=== PATIENT | male | born 1945 | race Two or more races ===

== ENCOUNTER 2019-10-07 11:08 | Emergency (ER) | payer MEDICAID ==
[~2019-10-07] VITALS: Ht 172.7 cm; Wt 94.8 kg
--- NOTE | 2019-10-07 11:20 | NUR ---
[id number], PT AWAKE, ALERT, -SOB, NAD NOTED, VSS ,PENDING MD JEAN
[2019-10-07] MEDS ORDERED: ONDANSETRON HCL/PF 4 MG/2 ML VIAL ONE (12:06)
[2019-10-07] MEDS ORDERED: ONDANSETRON HCL/PF 4 MG/2 ML VIAL IVP ONE (12:30)
[2019-10-07 12:37] LABS: BASOPHILS # (AUTO) 0.1 /CMM (0.0-0.2); BASOPHILS % (AUTO) 0.6 % (0.0-2.0); CALCIUM, SERUM 9.5 mg/dL (8.5-10.1); CARBON DIOXIDE 29 mmol/L (21-32); CHLORIDE 98 mmol/L (98-107); CREATININE 1.5 mg/dL (0.6-1.3); GLUCOSE 181 mg/dL (74-106); HEMATOCRIT 42 % (39-51); HEMOGLOBIN 14.1 g/dL (13.5-17.5); LYMPHOCYTES # (AUTO) 0.8 /CMM (0.8-4.8); LYMPHOCYTES % (AUTO) 6.7 % (20.0-44.0); MEAN CORPUSCULAR HGB CONC 34 g/dl (31.0-36.0); MEAN CORPUSCULAR VOLUME 91 fL (80-96); MONOCYTES # (AUTO) 0.3 /CMM (0.1-1.30); MONOCYTES % (AUTO) 2.6 % (2.0-12.0); NEUTROPHILS # (AUTO) 10.8 /CMM (1.8-8.9); NEUTROPHILS % (AUTO) 89.1 % (43.0-81.0); PLATELET COUNT (AUTO) 235 /CMM (150-450); POTASSIUM 4.6 mmol/L (3.5-5.1); RED BLOOD CELL COUNT(AUTO) 4.57 MIL/uL (4.5-6.0); SODIUM SERUM 136 mmol/L (136-145); UREA NITROGEN, BLOOD 32 mg/dL (7-18); WHITE BLOOD COUNT (AUTO) 12.1 K/uL (4.3-11.0)
--- NOTE | 2019-10-07 12:38 | NUR ---
called rn sup for bed, waiting
[2019-10-07 12:43] LABS: APPEARANCE,URINE Clear (CLEAR); BILIRUBIN,URINE Negative (NEGATIVE); BLOOD, URINE Moderate Ery/uL (NEGATIVE); COLOR,URINE Yellow (YELLOW); KETONES,URINE Negative (NEGATIVE); LEUKOCYTE ESTERASE ,URINE Negative (NEGATIVE); NITRITE, URINE Negative (NEGATIVE); PROTEIN,URINE 30 mg/dl (NEGATIVE); UGLUCOSE Negative (NEGATIVE); UROBILINOGEN,URINE 0.2 EU/dL (0.2)
[2019-10-07] MEDS ORDERED: TICA90TA PO (12:46)
[2019-10-07] MEDS ORDERED: INSU100V27 SQ (12:46)
[2019-10-07] MEDS ORDERED: INSU100V7 SQ (12:46)
[2019-10-07] MEDS ORDERED: IBUP-1953 PO (12:46)
[2019-10-07] MEDS ORDERED: SITA100T PO (12:46)
[2019-10-07] MEDS ORDERED: ATOR20TA PO (12:46)
[2019-10-07] MEDS ORDERED: FURO-144 PO (12:46)
[2019-10-07] MEDS ORDERED: CAPT25TA3 PO (12:46)
[2019-10-07] MEDS ORDERED: LORA-259 PO (12:46)
[2019-10-07] MEDS ORDERED: ASPI-605 PO (12:46)
[2019-10-07] MEDS ORDERED: METF-440 PO (12:46)
[2019-10-07 12:50] LABS: BACTERIA,URINE Rare /HPF (None Seen); SQUAMOUS EPITHELIAL CELL,UR Rare /HPF (None Seen); WBC,URINE 0-2 /HPF (0-3)
[2019-10-07 12:53] LABS: ALANINE AMINOTRANSFERASE 47 U/L (12-78); ALCOHOL, BLOOD < 3 mg/dL (0-0); ALKALINE PHOSPHATASE 77 U/L (46-116); ASPARTATE AMINOTRANSFERASE 28 U/L (15-37); BILIRUBIN,DIRECT 0.2 mg/dL (0.0-0.2); BILIRUBIN,TOTAL 1.5 mg/dL (0.2-1.0); TOTAL PROTEIN, SERUM 8.1 g/dL (6.4-8.2)
[2019-10-07 12:54] LABS: ACETAMINOPHEN 0 ug/ml (10-30); SALICYLATE < 2.8 mg/dL (2.8-20.0)
[2019-10-07 13:07] LABS: SERUM AMMONIA 3 umol/L (11-32)
--- NOTE | 2019-10-07 13:54 | NUR ---
SPOKE TO , MERRITT, AND WAS INFORMED SHE DID NOT WANT PT TO BE TRANSFERRED AND HAD AN ETA OF 1500 TO ARRIVE IN ED
[2019-10-07] MEDS ORDERED: ASPIRIN EC 325 MG TABLET.DR PO ONE (14:00)
[2019-10-07 14:50] VITALS: BP 152/60
--- NOTE | 2019-10-07 15:18 | NUR ---
Patient does not wish to proceed with medical care recommended by Dr. Fisher. Patient given information related to possible complications, up to and including , which could occur as a result of leaving the hospital at this time. Patient verbalizes understanding of risks involved due to leaving against medical advice. Patient has signed AMA form.
== END 2019-10-07 15:22 | disposition left against medical advice (07) ==
LOC: ER 11:12
DX: R07.89 Other chest pain (principal); R10.9 Unspecified abdominal pain; R11.10 Vomiting, unspecified; R41.82 Altered mental status, unspecified; N28.9 Disorder of kidney and ureter, unspecified; I11.0 Hypertensive heart disease with heart failure; I50.9 Heart failure, unspecified; I25.10 Atherosclerotic heart disease of native coronary artery without angina pectoris; I25.2 Old myocardial infarction; E11.9 Type 2 diabetes mellitus without complications; F41.9 Anxiety disorder, unspecified; E78.5 Hyperlipidemia, unspecified; Z60.2 Problems related to living alone; Z79.899 Other long term (current) drug therapy; Z79.4 Long term (current) use of insulin; Z79.84 Long term (current) use of oral hypoglycemic drugs; Z79.82 Long term (current) use of aspirin
CPT/HCPCS: 36415; 70450; 71045; 74176; 80048; 80076; 80305; 80307; 80329; 81001; 82140; 82962; 83605; 83690; 84443; 84484; 85025; 85730; 87081; 87804 ×2; 93005; 96374; 99284; G0480; J2405; 81000-TC

== ENCOUNTER 2022-07-31 19:42 | Inpatient (IN) | payer MEDICARE, OTHER ==
[~2022-07-31] VITALS: Ht 172.7 cm; Wt 76.7 kg
[~2022-07-31 19:42] MED LIST: ASPI-605 PO; ATOR20TA PO; CAPT25TA3 PO; FURO-144 PO; IBUP-1953 PO; INSU100V27 SQ; INSU100V7 SQ; LORA-259 PO; METF-440 PO; SITA100T PO; TICA90TA PO
--- NOTE | 2022-07-31 20:11 | NUR ---
WALTER Carl FROM [facility]. SERVICE PROVIDER FACILITY ADMINISTERED INSULIN. UPON TRIAGE BS 517. PT A/OX1. TOLERATING R/A WELL WITH NO SOB. F/C INSERTED SERVICE PROVIDER. CONNECTED PT TO POX AND MONITOR. Addendum: 08/01/22 at 0247 by BJ WALTER Carl FROM [facility]. SERVICE PROVIDER FACILITY ADMINISTERED INSULIN 10UNITS. UPON TRIAGE BS 517. PT A/OX1; KINYARWANDA. TOLERATING R/A WELL WITH NO SOB. F/C INSERTED SERVICE PROVIDER. CONNECTED PT TO POX AND MONITOR. Addendum: 08/01/22 at 0249 by BJ WALTER Carl FROM [facility] SERVICE PROVIDER. SERVICE PROVIDER FACILITY ADMINISTERED INSULIN. UPON TRIAGE BS 517. PT A/OX1; KINYARWANDA. TOLERATING R/A WELL WITH NO SOB. F/C INSERTED SERVICE PROVIDER. CONNECTED PT TO POX AND MONITOR.
[2022-07-31] MEDS ORDERED: IV NS 0.9% 1,000 ML BAG IV ONE ×2 (20:30→21:30)
--- NOTE | 2022-07-31 20:33 | NUR ---
URINE COLLECTED AND SENT TO LAB VIA F/C INSERTED FILM WAXER Addendum: 08/01/22 at 0246 by BJ URINE COLLECTED VIA F/C INSERTED FILM WAXER AND SENT TO LAB
--- NOTE | 2022-07-31 20:33 | NUR ---
LAC #18G S/L BLOOD COLLECTED AND SENT TO LAB
[2022-07-31 20:37] LABS: BASOPHILS # (AUTO) 0.1 K/uL (0.0-0.2); BASOPHILS % (AUTO) 0.5 % (0.0-2.0); EOSINOPHILS % (AUTO) 0.4 % (0.0-6.0); HEMATOCRIT 46 % (39-51); HEMOGLOBIN 14.8 g/dL (13.5-17.5); LYMPHOCYTES # (AUTO) 1.3 K/uL (0.8-4.8); LYMPHOCYTES % (AUTO) 8.8 % (20.0-44.0); MEAN CORPUSCULAR HGB CONC 32 g/dl (31.0-36.0); MEAN CORPUSCULAR VOLUME 89 fL (80-96); MONOCYTES # (AUTO) 0.7 K/uL (0.1-1.30); MONOCYTES % (AUTO) 4.4 % (2.0-12.0); NEUTROPHILS # (AUTO) 12.9 K/uL (1.8-8.9); NEUTROPHILS % (AUTO) 85.9 % (43.0-81.0); PLATELET COUNT (AUTO) 446 K/uL (150-450); RED BLOOD CELL COUNT(AUTO) 5.12 MIL/uL (4.5-6.0)
[2022-07-31 20:41] LABS: BILIRUBIN,URINE SMALL (NEGATIVE); COLOR,URINE YELLOW (YELLOW); LEUKOCYTE ESTERASE ,URINE MODERATE (NEGATIVE); NITRITE, URINE NEGATIVE (NEGATIVE); PROTEIN,URINE 30 mg/dl (NEGATIVE); UGLUCOSE 250 MG/DL mg/dL (NEGATIVE); UROBILINOGEN,URINE 0.2 EU/dL (0.2)
[2022-07-31 20:54] LABS: RBC,URINE 51-80 /HPF (0-2); WBC,URINE 21-50 /HPF (0-3)
[2022-07-31 20:55] LABS: BACTERIA,URINE 2+ /HPF (None Seen); SQUAMOUS EPITHELIAL CELL,UR 0-2 /HPF (None Seen); YEAST,URINE Moderate /HPF (None Seen)
--- NOTE | 2022-07-31 20:56 | NUR ---
LAURA DAUGHTER IN LAW
[2022-07-31 21:05] LABS: ALANINE AMINOTRANSFERASE 25 U/L (12-78); ALBUMIN 3.2 g/dL (3.4-5.0); ALKALINE PHOSPHATASE 106 U/L (46-116); ASPARTATE AMINOTRANSFERASE 12 U/L (15-37); BILIRUBIN,DIRECT 0.2 mg/dL (0.0-0.2); BILIRUBIN,TOTAL 0.7 mg/dL (0.2-1.0); CALCIUM, SERUM 9.8 mg/dL (8.5-10.1); CARBON DIOXIDE 29 mmol/L (21-32); CHLORIDE 102 mmol/L (98-107); CREATININE 4.5 mg/dL (0.6-1.3); POTASSIUM 4.3 mmol/L (3.5-5.1); SODIUM SERUM 142 mmol/L (136-145)
[2022-07-31 21:11] LABS: GLUCOSE 615 mg/dL (74-106)
[2022-07-31 21:12] LABS: UREA NITROGEN, BLOOD 121 mg/dL (7-18)
--- NOTE | 2022-07-31 21:43 | NUR ---
COVID ANTIGEN SWAB COLLECTED AND SENT TO LAB
[2022-07-31] MEDS ORDERED: INSULIN GLARGINE, 100 UNIT/ML CARTRIDGE SQ SCH (22:00)
--- NOTE | 2022-07-31 22:02 | NUR ---
DRYING ROOM OPERATOR AT PT'S BEDSIDE
--- NOTE | 2022-07-31 22:07 | NUR ---
PT TAKEN TO CT VIA SEAN
[2022-07-31] MEDS ORDERED: INSULIN REGULAR, HUMAN 100 UNIT/ML 10 ML VIAL ONE (22:08)
--- NOTE | 2022-07-31 22:51 | NUR ---
LACTIC ACID 2.2
[2022-07-31] MEDS ORDERED: INSULIN GLARGINE, 100 UNIT/ML CARTRIDGE SQ ONE (23:00)
[2022-07-31] MEDS ORDERED: ONDANSETRON HCL/PF 4 MG/2 ML VIAL IVP PRN (23:30)
[2022-07-31] MEDS ORDERED: ACETAMINOPHEN 325 MG TABLET PO PRN (23:30)
[2022-07-31] MEDS ORDERED: CIPROFLOXACIN IV RTU 200 MG in PREMIX 1 EA IV SCH (23:30)
[2022-07-31] MEDS ORDERED: IV NS 0.9% 1,000 ML IV PRN ×2 (23:30→23:35)
[2022-07-31] MEDS ORDERED: SENNOSIDES 8.6 MG TABLET PO PRN (23:30)
[2022-07-31] MEDS ORDERED: Z GUARD REMEDY 4 OZ OINT TP PRN (23:30)
[2022-07-31] MEDS ORDERED: INSULIN REGULAR, HUMAN 100 UNIT/ML 3 ML VIAL SQ PRN (23:30)
[2022-07-31] MEDS ORDERED: METRONIDAZOLE 500MG/ NS 100ML 500 MG in PREMIX 1 EA IV SCH (23:30)
[2022-07-31] MEDS ORDERED: NA PHOS,M-B/NA PHOS,DI-BA 1 EA ENEMA RC ONE (23:30)
[2022-07-31] MEDS ORDERED: DEXTROSE 50%-WATER 50 ML DISP.SYRIN IV PRN (23:30)
--- NOTE | 2022-07-31 23:53 | NUR ---
US TECH AT PT'S BEDSIDE
--- NOTE | 2022-08-01 02:41 | NUR ---
REPORT GIVEN TO MERISSA Bennett RN FOR BIJAN
--- NOTE | 2022-08-01 03:24 | NUR ---
PT TRANSFERRED TO [facility] VIA HOSPITAL PROTOCOL. VSS. ALL BELONGINGS WITH PT.
[2022-08-01 03:30] VITALS: BP 142/65
--- NOTE | 2022-08-01 03:30 | NUR ---
ADMISSION NOTES PT ARRIVED VIA GURNEY AT APPROXIMATELY 0330 ACCOMPANIED BY EMT. AOx1, ORIENTED TO NAME. ON RA AND TOLERATING WELL. NO SOB NOTED. NO S/SX OF RESPIRATOR DISTRESS NOTED. IV ACCESS IN LAC #18G RUNNING NS @ 50 ML/HR. WOUND PICTURES TAKEN. SAFETY PRECAUTIONS IN PLACE: BED IN LOWEST, LOCKED POSITION, SIDERAILS UPx2, AND BRAKES ON. TABLE AND CALL LIGHT WITHIN REACH. ALL NEEDS MET AT THIS TIME.
[2022-08-01 03:45] VITALS: BP 142/62
[2022-08-01] MEDS ORDERED: NA PHOS,M-B/NA PHOS,DI-BA 1 EA ENEMA RC ONE (04:00)
--- NOTE | 2022-08-01 05:39 | NUR ---
RN NOTES RECEIVED CRITICAL LAB VALUE FOR LACTIC ACID 2.4. JAMILA MONETS MADE AWARE. Addendum: 08/01/22 at 0551 by SAM POOLE RN NO NEW ORDERS.
--- NOTE | 2022-08-01 06:18 | NUR ---
RN NOTES ASSESSED PATIENT'S BLOOD GLUCOSE WITH ACCUCHECK AND VALUE WAS 513. JAMILA MONTES MADE AWARE. ORDERED AGGRESSIVE SLIDING SCALE FOR PATIENT AND SAID TO FOLLOW PROTOCOL.
[2022-08-01] MEDS ORDERED: DEXTROSE 50%-WATER 50 ML DISP.SYRIN IV PRN (06:30)
[2022-08-01] MEDS ORDERED: *INSULIN REGULAR(HUMULIN R)HUM 100 UNIT/ML VIAL SQ PRN (06:30)
[2022-08-01] MEDS: BLOOD SUGAR DIAGNOSTIC 1 EACH STRIP IN SCH ×4 (06:54→22:13)
[2022-08-01] MEDS: INSULIN REGULAR, HUMAN 100 UNIT/ML 3 ML VIAL SQ PRN (06:54)
[2022-08-01 07:00] VITALS: BP 144/78
[2022-08-01] MEDS ORDERED: CIPROFLOXACIN IV RTU 200 MG in PREMIX 1 EA IV SCH (07:30)
[2022-08-01] MEDS ORDERED: IV NS 0.9% 1,000 ML IV SCH (07:30)
[2022-08-01] MEDS ORDERED: BLOOD SUGAR DIAGNOSTIC 1 EACH STRIP IN SCH (07:30)
--- NOTE | 2022-08-01 07:36 | NUR ---
RN CLOSING NOTES PT IN BED, ASLEEP, AWAKENS TO VERBAL STIMULI. AOx1, ORIENTED TO NAME. ON RA AND TOLERATING WELL. NO SOB NOTED. NO S/SX OF RESPIRATOR DISTRESS NOTED. IV ACCESS IN LAC #18G RUNNING NS @ 50 ML/HR. WOUND PICTURES TAKEN. ALL ORDERS CARRIED OUT. ALL NEEDS MET. PT KEPT CLEAN AND DRY. SAFETY PRECAUTIONS IN PLACE: BED IN LOWEST, LOCKED POSITION, SIDERAILS UPx2, AND BRAKES ON. TABLE AND CALL LIGHT WITHIN REACH. WILL ENDORSE TO ONCOMING SHIFT FOR BIJAN.
[2022-08-01 07:45] LABS: BASOPHILS % (AUTO) 0.2 % (0.0-2.0); HEMATOCRIT 42 % (39-51); HEMOGLOBIN 13.6 g/dL (13.5-17.5); LYMPHOCYTES % (AUTO) 5.7 % (20.0-44.0); MEAN CORPUSCULAR HGB CONC 33 g/dl (31.0-36.0); MEAN CORPUSCULAR VOLUME 89 fL (80-96); MONOCYTES # (AUTO) 0.6 K/uL (0.1-1.30); MONOCYTES % (AUTO) 3.6 % (2.0-12.0); NEUTROPHILS # (AUTO) 15.6 K/uL (1.8-8.9); NEUTROPHILS % (AUTO) 90.5 % (43.0-81.0); PLATELET COUNT (AUTO) 376 K/uL (150-450); RED BLOOD CELL COUNT(AUTO) 4.66 MIL/uL (4.5-6.0); WHITE BLOOD COUNT (AUTO) 17.2 K/uL (4.3-11.0)
--- NOTE | 2022-08-01 07:45 | NUR ---
MS RN OPENING NOTES: RECEIVED PT IN BED, ASLEEP, AWAKENS TO VERBAL STIMULI. AOx1, ORIENTED TO NAME. ON RA AND TOLERATING WELL. NO SOB NOTED. NO S/SX OF RESPIRATOR DISTRESS NOTED. IV ACCESS IN LAC #18G RUNNING NS @ 50 ML/HR. SAFETY PRECAUTIONS IN PLACE: BED IN LOWEST, LOCKED POSITION, SIDERAILS UPx2, AND BRAKES ON. TABLE AND CALL LIGHT WITHIN REACH. WILL CONTINUE WITH PLAN OF CARE DURING SHIFT. Addendum: 08/01/22 at 0828 by MISTY VELEZ RN KATHY MICHAEL NOTED, DRAINING CLEAR YELLOW URINE
--- NOTE | 2022-08-01 07:45 | NUR ---
RUPAL MAYORGA OPENING NOTES: Addendum: 08/01/22 at 0807 by MISTY VELEZ RN ERRONEOUS ENTRY
[2022-08-01] MEDS ORDERED: METO25TA6 PO (08:02)
[2022-08-01] MEDS ORDERED: INSU100V36 SQ (08:02)
[2022-08-01] MEDS ORDERED: CRAN425C6 PO (08:02)
[2022-08-01] MEDS ORDERED: MAGN400O6 PO (08:02)
[2022-08-01] MEDS ORDERED: DONE5TAB34 PO (08:02)
[2022-08-01] MEDS ORDERED: LOSA50TA39 PO (08:02)
[2022-08-01] MEDS ORDERED: QUET25TA PO (08:02)
[2022-08-01] MEDS ORDERED: TAMS-12 PO (08:02)
[2022-08-01 08:19] LABS: CARBON DIOXIDE 25 mmol/L (21-32); CHLORIDE 109 mmol/L (98-107); CREATININE 3.9 mg/dL (0.6-1.3); MAGNESIUM 3.2 mg/dL (1.8-2.4); PHOSPHORUS 5.8 mg/dL (2.5-4.9); SODIUM SERUM 147 mmol/L (136-145)
[2022-08-01 08:24] LABS: THYROID STIMULATING HORMONE 0.067 uIU/mL (0.358-3.74)
[2022-08-01] MEDS: INSULIN LISPRO/ASPART 100 UNIT/ML CARTRIDGE SQ SCH ×3 (09:00→18:30)
[2022-08-01] MEDS ORDERED: IBUPROFEN 600 MG TABLET PO SCH (09:00)
[2022-08-01] MEDS ORDERED: FUROSEMIDE 40 MG TABLET PO SCH (09:00)
[2022-08-01] MEDS ORDERED: LISINOPRIL (10MG) 10 MG TABLET PO SCH (09:00)
[2022-08-01] MEDS: TICAGRELOR 90 MG TABLET PO SCH ×3 (09:00→18:01)
[2022-08-01] MEDS ORDERED: LINAGLIPTIN 5 MG TABLET PO SCH (09:00)
[2022-08-01] MEDS ORDERED: METFORMIN 500 MG TABLET PO SCH (09:00)
--- NOTE | 2022-08-01 09:02 | NUR ---
WOUND CARE CONSULT: PT PRESENTS WITH PINK AREA OF DRY EXCORIATION TO LEFT ANTERIOR LOWER LEG, PRESENT ON ADMISSION. NO ERYTHEMA, DRAINAGE OR TENDERNESS NOTED. PT IS INCONTINENT OF STOOL. CHAVEZ CATH NOTED. RECOMMENDATIONS MADE FOR SKIN PROTECTION. DISCUSSED WITH NURSING STAFF. MD IN AGREEMENT WITH PLAN OF CARE.
[2022-08-01] MEDS: ASPIRIN EC 81 MG TABLET.DR PO SCH (09:05)
[2022-08-01] MEDS: DOCUSATE SODIUM 250 MG CAPSULE PO SCH ×2 (09:05→17:21)
[2022-08-01] MEDS: HEPARIN SODIUM, PORCINE 5000 UNITS/1 ML VIAL SQ SCH ×2 (09:07→17:22)
[2022-08-01 09:19] LABS: GLUCOSE 578 mg/dL (74-106)
[2022-08-01 09:20] LABS: UREA NITROGEN, BLOOD 111 mg/dL (7-18)
[2022-08-01] MEDS: PANTOPRAZOLE 40 MG TABLET.DR PO SCH (10:17)
[2022-08-01] MEDS: METRONIDAZOLE 500MG/ NS 100ML 500 MG in PREMIX 1 EA IV SCH ×3 (11:43→20:11)
--- NOTE | 2022-08-01 12:06 | NUR ---
MS RN NOTES; 25 UNITS HUMALOG GIVEN AC, HK=[id number], OK PER CHARGE, MADE AWARE.
[2022-08-01 16:00] VITALS: BP 114/64
[2022-08-01] MEDS: IV D5/0.45 NACL 1,000 ML IV SCH (17:57)
--- NOTE | 2022-08-01 19:35 | NUR ---
MS RN OPENING NOTE RECEIVED PATIENT IN BED; AWAKE, ALERT AND ORIENTED X 1. BREATHING EVEN AND NONLABORED. ON ROOM AIR; TOLERATING WELL. NOT IN ANY FORM OF RESPIRATORY DISTRESS. DENIES ANY PAIN OR DISCOMFORT AT THIS TIME. WITH IV ACCESS ON RIGHT FOREARM 22g; PATENT AND INTACT INFUSING WITH D5 1/2 NS 1L RUNNING @ 100 ML/HR; FLUSHES WELL. WITH CHAVEZ CATHETER IN PLACE DRAINING TO CLOUDY YELLOW URINE. WITH LEFT SOFT WRIST RESTRAINT; SKIN AND CIRCULATION WNL. NEEDS ANTICIPATED. SAFETY MEASURES IMPLEMENTED: CALL LIGHT AND TABLE WITHIN REACH, SIDE RAILS UP X 3, BED IN LOWEST LOCKED POSITION. WILL CONTINUE PLAN OF CARE.
--- NOTE | 2022-08-01 19:40 | NUR ---
MS RN CLOSING NOTES: PT IN BED, ASLEEP, AWAKENS TO VERBAL STIMULI. AOx1, ORIENTED TO NAME. ON RA AND TOLERATING WELL. NO SOB NOTED. NO S/SX OF RESPIRATOR DISTRESS NOTED. IV ACCESS IN R AC #22G RUNNING D51/2NS @ 100 ML/HR. CHAVEZ CATH DRAINED 900 CC OF CLEAR YELLOW URINE DURING AM SHIFT. SAFETY PRECAUTIONS IN PLACE: HOB ELEVATED 40 DEGREES TO PREVENT ASPIRATION. ALL DUE MEDS GIVEN, KEPT PT CLEAN, DRY AND COMFORTABLE. BED IN LOWEST, LOCKED POSITION, SIDERAILS UPx2, AND BRAKES ON. TABLE AND CALL LIGHT WITHIN REACH; ENDORSED TO PM SHIFT.
[2022-08-01 20:00] VITALS: BP 114/55
--- NOTE | 2022-08-01 22:21 | NUR ---
RN NOTE BS - 369 MG/DL; 10 UNITS OF INSULIN GIVEN SQ ORDERED PER SLIDING SCALE. WILL CONTINUE TO MONITOR.
[2022-08-01] MEDS: INSULIN GLARGINE, 100 UNIT/ML CARTRIDGE SQ SCH (22:48)
--- NOTE | 2022-08-01 22:48 | NUR ---
RN NOTE BS-369 MG/DL; INSULIN LANTUS 0.3 ML GIVEN SQ ORDERED; WILL CONTINUE TO MONITOR.
[2022-08-01] MEDS: ATORVASTATIN 10 MG TABLET PO SCH (22:49)
[2022-08-02] MEDS: IV D5/0.45 NACL 1,000 ML IV SCH (04:46)
[2022-08-02] MEDS: METRONIDAZOLE 500MG/ NS 100ML 500 MG in PREMIX 1 EA IV SCH ×3 (04:47→21:59)
[2022-08-02] MEDS: BLOOD SUGAR DIAGNOSTIC 1 EACH STRIP IN SCH ×5 (06:42→22:37)
[2022-08-02] MEDS: INSULIN REGULAR, HUMAN 100 UNIT/ML 3 ML VIAL SQ PRN ×2 (06:45→09:43)
--- NOTE | 2022-08-02 06:45 | NUR ---
RN NOTE BS-496 MG/DL; 20 U OF INSULIN SQ GIVEN PER SLIDING SCALE ORDERED. JAMILA MONTES NP PULMONARY CARE NURSE HOSPITALIST MADE AWARE; AWAITING REPLY.
--- NOTE | 2022-08-02 06:45 | NUR ---
MS MUKESH CLOSING NOTE PATIENT IN BED; AWAKE, A/OR X 4. STABLE ON ROOM AIR. RESPIRATION EQUAL AND UNLABORED. IN NO ACUTE DISTRESS. NO C/O ANY PAIN OR DISCOMFORT. WITH RIJ HD CATH; INTACT. IV SITE ON RIGHT AC 22g; PATENT, INTACT AND SALINE LOCKED. ALL NEEDS MET. SAFETY MEASURES IN PLACE: CALL LIGHT AND TABLE WITHIN REACH, SIDE RAILS UP X 2, BED IN LOWEST LOCKED POSITION. ENDORSED TO MORNING SHIFT FOR BIJAN. Addendum: 08/02/22 at 0747 by ISA REICH RN MISTAKEN ENTRY
--- NOTE | 2022-08-02 06:48 | NUR ---
MS RN CLOSING NOTE PATIENT IN BED; AWAKE, A/O X 1. BREATHING EVEN AND NONLABORED. STABLE ON ROOM AIR. IN NO ACUTE DISTRESS. NO S/S OF ANY PAIN OR DISCOMFORT AT THIS TIME. WITH IV ACCESS ON RIGHT FOREARM 22g; PATENT AND INTACT INFUSING WITH D5 1/2 NS 1L RUNNING @ 100 ML/HR; FLUSHES WELL. WITH CHAVEZ CATHETER IN PLACE DRAINING TO CLOUDY YELLOW URINE. WITH BILATERAL SOFT WRIST RESTRAINT; SKIN AND CIRCULATION WNL. ALL NEEDS ATTENDED. SAFETY MEASURES IN PLACE: CALL LIGHT AND TABLE WITHIN REACH, SIDE RAILS UP X 3, BED IN LOWEST LOCKED POSITION. ENDORSED TO PERLITA MAYORGA FOR BIJAN.
--- NOTE | 2022-08-02 07:42 | NUR ---
MS RN OPENING NOTE PATIENT IN BED; SLEEPY, EASILY AROUSABLE, A/O X 1, KNOWS HIS NAME, STABLE ON ROOM AIR BREATHING EVEN AND NONLABORED. IN NO ACUTE DISTRESS. NO S/S OF ANY PAIN OR DISCOMFORT AT THIS TIME. WITH IV ACCESS ON RIGHT FOREARM 22G; PATENT AND INTACT INFUSING WITH D5 1/2 NS 1L RUNNING @ 100 ML/HR; FLUSHES WELL. WITH CHAVEZ CATHETER FR [address] DRAINING TO CLOUDY YELLOW URINE ABOUT 50 ML. WITH BILATERAL SOFT WRIST RESTRAINT; SKIN AND CIRCULATION WNL. SAFETY MEASURES IN PLACE: CALL LIGHT AND TRAY TABLE WITHIN REACH, SIDE RAILS UP X 3, BED IN LOWEST LOCKED POSITION. WILL CONTINUE TO MONITOR.
[2022-08-02 07:47] LABS: BASOPHILS % (AUTO) 0.1 % (0.0-2.0); EOSINOPHILS % (AUTO) 0.1 % (0.0-6.0); HEMATOCRIT 41 % (39-51); HEMOGLOBIN 13.3 g/dL (13.5-17.5); LYMPHOCYTES # (AUTO) 1.1 K/uL (0.8-4.8); LYMPHOCYTES % (AUTO) 5.9 % (20.0-44.0); MEAN CORPUSCULAR HGB CONC 33 g/dl (31.0-36.0); MEAN CORPUSCULAR VOLUME 89 fL (80-96); MONOCYTES # (AUTO) 0.9 K/uL (0.1-1.30); MONOCYTES % (AUTO) 4.7 % (2.0-12.0); NEUTROPHILS # (AUTO) 16.8 K/uL (1.8-8.9); NEUTROPHILS % (AUTO) 89.2 % (43.0-81.0); PLATELET COUNT (AUTO) 352 K/uL (150-450); RED BLOOD CELL COUNT(AUTO) 4.57 MIL/uL (4.5-6.0); WHITE BLOOD COUNT (AUTO) 18.8 K/uL (4.3-11.0)
[2022-08-02] MEDS: IV 1/2NS 1000 ML 1,000 ML IV SCH ×2 (08:04→18:22)
[2022-08-02] MEDS: PANTOPRAZOLE 40 MG TABLET.DR PO SCH (08:04)
[2022-08-02] MEDS: CIPROFLOXACIN IV RTU 400 MG in PREMIX 1 EA IV SCH (08:05)
[2022-08-02 08:11] LABS: CALCIUM, SERUM 8.7 mg/dL (8.5-10.1); CARBON DIOXIDE 21 mmol/L (21-32); CHLORIDE 113 mmol/L (98-107); CREATININE 3.3 mg/dL (0.6-1.3); POTASSIUM 3.6 mmol/L (3.5-5.1); SODIUM SERUM 150 mmol/L (136-145)
[2022-08-02 08:18] LABS: GLUCOSE 526 mg/dL (74-106)
[2022-08-02 08:19] LABS: UREA NITROGEN, BLOOD 97 mg/dL (7-18)
--- NOTE | 2022-08-02 08:35 | NUR ---
RN NOTES RECEIVED A CALL FROM [employer], THAT PATIENT'S BLOOD GLUCOSE IS 526 AND BUN IS 97, REPORTED INFORMATION TO DR TUCKER AT 0829 AND HE ORDERED 15 UNITS OF ADDITIONAL REGULAR INSULIN, GIVEN ACCORDINGLY. WILL CONTINUE TO MONITOR PATIENT.
[2022-08-02 08:45] VITALS: BP 132/70
[2022-08-02] MEDS: DOCUSATE SODIUM 250 MG CAPSULE PO SCH ×3 (09:29→17:11)
[2022-08-02] MEDS: ASPIRIN EC 81 MG TABLET.DR PO SCH (09:30)
[2022-08-02] MEDS: TICAGRELOR 90 MG TABLET PO SCH ×3 (09:30→17:11)
[2022-08-02] MEDS: HEPARIN SODIUM, PORCINE 5000 UNITS/1 ML VIAL SQ SCH ×2 (09:35→17:10)
[2022-08-02] MEDS: INSULIN LISPRO/ASPART 100 UNIT/ML CARTRIDGE SQ SCH ×2 (09:38→18:27)
[2022-08-02] MEDS ORDERED: MAGNESIUM HYDROXIDE 30 ML UDC PO PRN (10:00)
--- NOTE | 2022-08-02 10:35 | NUR ---
RN NOTES RECEIVED A CALL FROM LAURA, DAUGHTER IN LAW, AND PT'S SHORTLY AFTER ASKING FOR AN UPDATE, INFORMED THAT THE PATIENT IS GETTING ATB THERAPY AT THE MOMENT, AWARE THAT THE PT IS RESTRAINED BECAUSE OF HE IS TRYING TO REMOVE HIS CHAVEZ CATHETER, INFORMED THAT THE PATIENT IS ALSO BEING MONITORED BECAUSE OF HYPERGLYCEMIA. GAVE THE NUMBER OF EPIC TO LAURA FOR HER TO SPEAK TO THE MD.
--- NOTE | 2022-08-02 10:45 | NUR ---
RN NOTES SPEECH THERAPIST HAVE SEEN THE PATIENT AND RECOMMENDED THICKENED LIQUIDS AND FOLLOW STRICT ASPIRATION PRECAUTIONS.
--- NOTE | 2022-08-02 10:45 | NUR ---
RN NOTES BLOOD GLUCOSE CHECKED AT 1048 - 156, MD AWARE, NO NEW ORDERS GIVEN. WILL CONTINUE TO MONITOR
[2022-08-02] MEDS: QUETIAPINE FUMARATE 25 MG TABLET PO SCH ×2 (12:23→17:11)
[2022-08-02] MEDS: INSULIN ASPART/LISPRO 100 UNIT/ML CARTRIDGE SQ PRN (12:29)
[2022-08-02 16:36] VITALS: BP 130/65
--- NOTE | 2022-08-02 16:55 | NUR ---
RN NOTES CRITICAL GLUCOSE READING WITH 56 AT 1651, THEN 55 AT 1655. PATIENT IS DROWSY, UNABLE TO SWALLOW. GIVEN D 50/50 VIA IV PUSH AT 1705. MD HAS BEEN NOTIFIED.
[2022-08-02] MEDS: METOPROLOL TARTRATE 25 MG TABLET PO SCH ×2 (17:00→17:11)
[2022-08-02] MEDS: DEXTROSE 50%-WATER 50 ML DISP.SYRIN IV PRN (17:05)
--- NOTE | 2022-08-02 17:24 | NUR ---
RN NOTES 1700 DUE MEDS UNABLE TO GIVE DUE TO PATIENT TOO DROWSY, UNABLE TO SWALLOW. REPORTED TO THE MD.
--- NOTE | 2022-08-02 17:30 | NUR ---
RN NOTES DR TUCKER HAS BEEN INFORMED OF PT NOT EATING, BLOOD GLUCOSE OF 193 AFTER D 50/50 IV PUSH. NO COVERAGE FOR NOW.
--- NOTE | 2022-08-02 17:50 | NUR ---
RN NOTES - IV AND CHAVEZ CATHETER LEAKING RFA G#22 IV ACCESS LEAKING, NEW ACCESS ESTABLISHED ON LFA G#22 PATENT FLUSHING WELL. CHAVEZ CATHETER FR 16 LEAKING, CHARGE NURSE HAS BEEN INFORMED, SUGGESTED TO CHANGE TO CHAVEZ FR 18 INSTEAD. CHANGED SUCCESSFULLY NO BLEEDING NOTED.
--- NOTE | 2022-08-02 18:33 | NUR ---
MS RN CLOSING NOTE PATIENT IN BED; AWAKE, EASILY AROUSABLE TO SOUND AND TACTILE STIMULI, STABLE ON ROOM AIR BREATHING EVEN AND NONLABORED. IN NO ACUTE DISTRESS. PATIENT IS NOT ABLE TO SWALLOW AT THIS MOMENT, MD HAS BEEN AWARE. MD ORDERED TO HOLD OFF ON INSULIN, LAST CHECK WAS 193 AT 1730. NO S/S OF ANY PAIN OR DISCOMFORT AT THIS TIME. WITH IV ACCESS ON LEFT FOREARM 22G; PATENT AND INTACT INFUSING WITH 1/2 NS 1L RUNNING @ 100 ML/HR; FLUSHES WELL. WITH CHAVEZ CATHETER FR [address] DRAINING TO CLOUDY YELLOW URINE ABOUT 30 ML. WITH BILATERAL SOFT WRIST RESTRAINT; SKIN AND CIRCULATION CHECKED HOURLY. ALL NEEDS MET, ALL DUE MEDS GIVEN. SAFETY MEASURES IN PLACE: CALL LIGHT AND TRAY TABLE WITHIN REACH, SIDE RAILS UP X 3, BED IN LOWEST LOCKED POSITION. WILL ENDORSE TO THE LAUNDRY LABORER NURSE.
--- NOTE | 2022-08-02 19:35 | NUR ---
MS RN OPENING NOTE RECEIVED PATIENT IN BED; AWAKE, ALERT AND ORIENTED X 1. BREATHING EVEN AND NONLABORED. ON ROOM AIR; TOLERATING WELL. NOT IN ANY FORM OF RESPIRATORY DISTRESS. NO S/S OF ANY PAIN OR DISCOMFORT NOTED AT THIS TIME. WITH IV ACCESS ON LEFT FOREARM 22g; PATENT AND INTACT INFUSING WITH 0.45% NS 1L RUNNING @ 100 ML/HR; FLUSHES WELL. WITH CHAVEZ CATHETER FR [address] DRAINING TO CLOUDY YELLOW URINE. WITH BILATERAL SOFT WRIST RESTRAINTS IN PLACE; SKIN AND CIRCULATION WNL. NEEDS ANTICIPATED. SAFETY MEASURES IMPLEMENTED: HEAD OF BED ELEVATED, CALL LIGHT AND TABLE WITHIN REACH, SIDE RAILS UP X 3, BED IN LOWEST LOCKED POSITION. WILL CONTINUE PLAN OF CARE.
[2022-08-02 20:00] VITALS: BP 106/50
[2022-08-02] MEDS: INSULIN GLARGINE, 100 UNIT/ML CARTRIDGE SQ SCH (22:00)
[2022-08-02] MEDS: ATORVASTATIN 10 MG TABLET PO SCH (22:32)
[2022-08-02] MEDS: DONEPEZIL 5 MG TABLET PO SCH (22:32)
--- NOTE | 2022-08-02 22:48 | NUR ---
RN NOTE INSULIN LANTUS 0.3 ML HELD; PATIENT DID NOT EAT DINNER. WILL CONTINUE TO MONITOR FOR S/S OF HYPO/HYPERGLYCEMIA.
[2022-08-02] MEDS: *INSULIN ASPART NOVOLOG 100 UNIT/ML CARTRIDGE SQ PRN (23:12)
--- NOTE | 2022-08-02 23:12 | NUR ---
RN NOTE BS - 185 MG/DL. 3U INSULIN ASPART GIVEN SQ PER SLIDING SCALE. WILL CONTINUE TO MONITOR.
[2022-08-03] MEDS: IV 1/2NS 1000 ML 1,000 ML IV SCH ×2 (04:10→14:09)
[2022-08-03] MEDS: METRONIDAZOLE 500MG/ NS 100ML 500 MG in PREMIX 1 EA IV SCH ×3 (04:11→20:39)
[2022-08-03] MEDS: BLOOD SUGAR DIAGNOSTIC 1 EACH STRIP IN SCH ×4 (05:47→22:35)
[2022-08-03] MEDS: INSULIN ASPART/LISPRO 100 UNIT/ML CARTRIDGE SQ PRN ×3 (05:53→17:01)
--- NOTE | 2022-08-03 05:53 | NUR ---
RN NOTE BS - 356 MG/DL. 20 U INSULIN ASPART GIVEN SQ PER SLIDING SCALE. WILL CONTINUE TO MONITOR.
--- NOTE | 2022-08-03 06:50 | NUR ---
MS RN CLOSING NOTE PATIENT IN BED; AWAKE, A/OX 1. STABLE ON ROOM AIR. RESPIRATION EVEN AND UNLABORED. IN NO ACUTE DISTRESS. NO S/S OF ANY PAIN OR DISCOMFORT NOTED AT THIS TIME. WITH IV ACCESS ON LEFT FA 22g; PATENT AND INTACT INFUSING WITH 0.45% NS 1L RUNNING @ 100 ML/HR; FLUSHES WELL. WITH CHAVEZ CATH IN PLACE DRAINING TO BLOODY URINE. WITH BILATERAL SOFT WRIST RESTRAINT IN PLACE; SKIN AND CIRCULATION CHECKED; WNL. ALL NEEDS ATTENDED. ALL DUE MEDS GIVEN ORDERED. SAFETY MEASURES MAINTAINED: HEAD OF BED ELEVATED, CALL LIGHT AND TABLE WITHIN REACH, SIDE RAILS UP X 3, BED IN LOWEST LOCKED POSITION. ENDORSED TO MORNING SHIFT FOR BIJAN.
[2022-08-03 07:00] VITALS: BP 117/64
[2022-08-03 07:09] LABS: BASOPHILS % (AUTO) 0.1 % (0.0-2.0); HEMATOCRIT 39 % (39-51); HEMOGLOBIN 12.3 g/dL (13.5-17.5); LYMPHOCYTES # (AUTO) 1.5 K/uL (0.8-4.8); LYMPHOCYTES % (AUTO) 7.3 % (20.0-44.0); MEAN CORPUSCULAR HGB CONC 32 g/dl (31.0-36.0); MEAN CORPUSCULAR VOLUME 91 fL (80-96); MONOCYTES # (AUTO) 0.9 K/uL (0.1-1.30); MONOCYTES % (AUTO) 4.5 % (2.0-12.0); NEUTROPHILS # (AUTO) 18.3 K/uL (1.8-8.9); NEUTROPHILS % (AUTO) 88.1 % (43.0-81.0); PLATELET COUNT (AUTO) 300 K/uL (150-450); RED BLOOD CELL COUNT(AUTO) 4.28 MIL/uL (4.5-6.0); WHITE BLOOD COUNT (AUTO) 20.8 K/uL (4.3-11.0)
[2022-08-03] MEDS: CIPROFLOXACIN IV RTU 400 MG in PREMIX 1 EA IV SCH (07:24)
[2022-08-03] MEDS: PANTOPRAZOLE 40 MG TABLET.DR PO SCH (07:24)
[2022-08-03 07:35] LABS: CALCIUM, SERUM 8.6 mg/dL (8.5-10.1); CARBON DIOXIDE 18 mmol/L (21-32); CHLORIDE 116 mmol/L (98-107); CREATININE 3.6 mg/dL (0.6-1.3); MAGNESIUM 2.5 mg/dL (1.8-2.4); PHOSPHORUS 4.4 mg/dL (2.5-4.9); POTASSIUM 3.8 mmol/L (3.5-5.1); SODIUM SERUM 154 mmol/L (136-145)
--- NOTE | 2022-08-03 07:42 | NUR ---
MS RN OPENING NOTE PATIENT IN BED; AWAKE, EASILY AROUSABLE, A/O X 1, KNOWS HIS NAME, STABLE ON ROOM AIR BREATHING EVEN AND NONLABORED. IN NO ACUTE DISTRESS NOTED. NO S/S OF ANY PAIN OR DISCOMFORT AT THIS TIME. WITH IV ACCESS ON LEFT FOREARM 22G; PATENT AND INTACT INFUSING WITH .45% NS 1L RUNNING @ 100 ML/HR; FLUSHES WELL. WITH CHAVEZ CATHETER FR [address] DRAINING TO CLOUDY YELLOW URINE. WITH BILATERAL SOFT WRIST RESTRAINT; SKIN AND CIRCULATION CHECKED, WNL. SAFETY MEASURES IN PLACE: CALL LIGHT AND TRAY TABLE WITHIN REACH, SIDE RAILS UP X 3, HEAD OF BED ELEVATED BED IN LOWEST LOCKED POSITION. WILL CONTINUE TO MONITOR.
[2022-08-03 08:00] VITALS: BP 117/64
[2022-08-03 08:10] LABS: GLUCOSE 367 mg/dL (74-106)
[2022-08-03 08:11] LABS: UREA NITROGEN, BLOOD 93 mg/dL (7-18)
[2022-08-03] MEDS: HEPARIN SODIUM, PORCINE 5000 UNITS/1 ML VIAL SQ SCH ×2 (08:45→16:28)
[2022-08-03] MEDS: METOPROLOL TARTRATE 25 MG TABLET PO SCH ×2 (08:46→16:29)
[2022-08-03] MEDS: DOCUSATE SODIUM 250 MG CAPSULE PO SCH ×2 (08:47→16:29)
[2022-08-03] MEDS: QUETIAPINE FUMARATE 25 MG TABLET PO SCH ×3 (08:47→16:29)
[2022-08-03] MEDS: ASPIRIN EC 81 MG TABLET.DR PO SCH (08:47)
[2022-08-03] MEDS: TAMSULOSIN 0.4 MG CAP.SR.24H PO SCH (08:47)
[2022-08-03] MEDS: TICAGRELOR 90 MG TABLET PO SCH ×2 (08:48→16:29)
[2022-08-03] MEDS: INSULIN LISPRO/ASPART 100 UNIT/ML CARTRIDGE SQ SCH ×2 (09:02→18:29)
[2022-08-03] MEDS: FLUCONAZOLE (100 MG) 100 MG TABLET PO SCH (10:18)
[2022-08-03 16:00] VITALS: BP 133/99
--- NOTE | 2022-08-03 17:59 | NUR ---
RN NOTES MERRITT CALLED, NEPALI SPEAKING MOSTLY, ASKED REGARDING PT'S CURRENT BLOOD SUGAR AND IF WAS TALKING, ADVISED THE READING AND MENTIONED HE IS NOT SPEAKING.
--- NOTE | 2022-08-03 18:20 | NUR ---
MS RN CLOSING NOTES PATIENT IN BED; EYES CLOSED, EASILY AROUSABLE WHEN CALLED, A/O X 1, NON-VERBAL, STABLE ON ROOM AIR BREATHING EVEN AND NONLABORED. IN NO ACUTE DISTRESS NOTED. NO S/S OF ANY PAIN OR DISCOMFORT NOTED. WITH IV ACCESS ON LEFT FOREARM 22G; PATENT AND INTACT INFUSING WITH .45% NS 1L RUNNING @ 100 ML/HR ORDERED, WITH CHAVEZ CATHETER FR [address], WITH OUTPUT OF 400 ML DARK YELLOW URINE. WITH BILATERAL SOFT WRIST RESTRAINT; SKIN AND CIRCULATION CHECKED Q2H, ALLOWED PATIENT TO BE OFF RESTRAINTS DURING MEALS/SNACKS. TURNED AND REPOSITIONED THE PATIENT EVERY 2 HOURS. ALL DUE MEDS GIVEN, ALL NEEDS MET. SAFETY MEASURES MAINTAINED: CALL LIGHT AND TRAY TABLE WITHIN REACH, SIDE RAILS UP X 3, HEAD OF BED ELEVATED BED IN LOWEST LOCKED POSITION. WILL ENDORSE TO THE COLOR MAKER DYER NURSE.
--- NOTE | 2022-08-03 18:26 | NUR ---
RN NOTES GUSSET MAKER REPORTS THAT THE PATIENT DIDNT EAT HIS DINNER, VERY DROWSY. PATIENT IS HIGH RISK FOR ASPHYRATION WELL. WILL HOLD INSULIN FOR AFTER MEAL FOR SAFETY.
[2022-08-03 20:00] VITALS: BP 101/51
--- NOTE | 2022-08-03 20:15 | NUR ---
MS RN OPENING NOTE PATIENT IN BED SLEEPING. A/O X 1, NON-VERBAL AND NON-AROUSABLE. VITAL SIGNS STABLE. BREATHING EVEN AND UNLABORED. NO S/S PAIN NOTED. IV ACCESS TO LEFT FOREARM 22G; PATENT AND INTACT INFUSING WITH .45% NS 1L RUNNING @ 100 ML/HR. 18 FR CHAVEZ CATHETER DRAINING DARK YELLOW URINE TO GRAVITY. BILATERAL SOFT WRIST RESTRAINTS IN PLACE.WITH SKIN AND CIRCULATION CHECKED Q2H. TURNED AND REPOSITIONED THE PATIENT EVERY 2 [address]. [address] MEAS[address] IN PLACE: BED IN LOWEST AND LOCKED POSITION, HEAD OF BED ELEVATED, SIDE RAILS UP X 3, CALL LIGHT AND TRAY TABLE WITHIN REACH. WILL CONTINUE TO MONITOR AND PROVIDE CARE.
[2022-08-03] MEDS: DONEPEZIL 5 MG TABLET PO SCH (21:53)
[2022-08-03] MEDS: ATORVASTATIN 10 MG TABLET PO SCH (21:54)
[2022-08-03] MEDS: INSULIN GLARGINE, 100 UNIT/ML CARTRIDGE SQ SCH (22:00)
--- NOTE | 2022-08-03 22:36 | NUR ---
BLOOD SUGAR AT 2200= 263. RN DID NOT GIVE 6 UNITS OF SLIDING SCALE INSULIN NOR THE HS DOSE OF 30 UNITS OF LANTUS BECAUSE PATIENT HAS NOT BEEN EATING. IN ADDITION, RN SPENT AROUND 30 MINUTES TRYING TO HAVE PATIENT SWALLOW APPLESAUCE WITH THE HELP OF GEODESIST TO HAVE HIM DRINK WATER TO WASH IT DOWN AND PATIENT WAS NOT ABLE TO SWALLOW EITHER THE APPLESAUCE OR THE WATER. DAUGHTER LAURA IS AWARE OF BS READING AND PROBLEM WITH SWALLOWING AND THIS BEING THE REASON FOR NO INSULIN GIVEN.
[2022-08-04] MEDS: IV 1/2NS 1000 ML 1,000 ML IV SCH ×3 (00:15→20:52)
[2022-08-04] MEDS: METRONIDAZOLE 500MG/ NS 100ML 500 MG in PREMIX 1 EA IV SCH ×3 (04:51→21:26)
[2022-08-04] MEDS: INSULIN ASPART/LISPRO 100 UNIT/ML CARTRIDGE SQ PRN ×2 (07:05→12:30)
[2022-08-04] MEDS: BLOOD SUGAR DIAGNOSTIC 1 EACH STRIP IN SCH ×4 (07:11→22:44)
--- NOTE | 2022-08-04 08:10 | NUR ---
MS MUKESH OPENING NOTE Patient in bed, awake. A/O x 1. On room air, breathing evenly and unlabored. No SOB or s/s of distress noted. IV access on LFA #22 infusing 1/2 NS at 100 ml/hr. Roberts catheter in place draining to a yellow colored urine. Safety precautions in place: bed in low, locked position; siderails up x 2, call light within reach. Will continue to monitor. Addendum: 08/04/22 at 1150 by MICHAEL KRUGER RN ADD: Bilateral soft wrist restraints noted.
--- NOTE | 2022-08-04 08:12 | NUR ---
MS RN CLOSING NOTE: PATIENT LYING IN BED AWAKE. A/O X 1, NON-VERBAL. VITAL SIGNS STABLE. BREATHING EVEN AND UNLABORED. NO S/S PAIN NOTED. IV ACCESS TO LEFT FOREARM 22G; PATENT AND INTACT INFUSING WITH .45% NS 1L RUNNING @ 100 ML/HR. BLOOD SUGAR READING AT 0700 WAS 414. CHARGE NURSE ADVISED RN TO GIVE 20 UNITS OF SLIDING SCALE HUMALOG AND CALL THE DOCTOR. INSULIN WAS GIVEN AND TEXTED JAMILA MONTES WITHOUT ANSWER. LEEROY RN WILL SPEAK WITH DR. TUCKER TODAY ABOUT THIS. 18 FR CHAVEZ CATHETER DRAINING DARK YELLOW URINE TO GRAVITY WITH 600 ML OUTPUT. BILATERAL SOFT WRIST RESTRAINTS IN PLACE WITH SKIN AND CIRCULATION CHECKED Q2H. TURNED AND REPOSITIONED THE PATIENT EVERY 2 HOURS. SAFETY MEASURES MAINTAINED: BED IN LOWEST AND LOCKED POSITION, HEAD OF BED ELEVATED, SIDE RAILS UP X 3, CALL LIGHT AND TRAY TABLE WITHIN REACH. WILL ENDORSE TO NEXT SHIFT FOR BIJAN.
--- NOTE | 2022-08-04 08:26 | NUR ---
RN NOTE Nursing swallow eval done at bedside. Patient was able to swallow apple sauce with no problem, no choking or coughing noted.
[2022-08-04] MEDS: PANTOPRAZOLE 40 MG TABLET.DR PO SCH (08:31)
[2022-08-04] MEDS: CIPROFLOXACIN IV RTU 400 MG in PREMIX 1 EA IV SCH (08:32)
[2022-08-04 08:34] LABS: BASOPHILS % (AUTO) 0.1 % (0.0-2.0); EOSINOPHILS % (AUTO) 0.2 % (0.0-6.0); HEMATOCRIT 37 % (39-51); HEMOGLOBIN 11.4 g/dL (13.5-17.5); LYMPHOCYTES # (AUTO) 0.9 K/uL (0.8-4.8); LYMPHOCYTES % (AUTO) 5.1 % (20.0-44.0); MEAN CORPUSCULAR HGB CONC 31 g/dl (31.0-36.0); MEAN CORPUSCULAR VOLUME 93 fL (80-96); MONOCYTES # (AUTO) 0.4 K/uL (0.1-1.30); MONOCYTES % (AUTO) 2.1 % (2.0-12.0); NEUTROPHILS # (AUTO) 15.9 K/uL (1.8-8.9); NEUTROPHILS % (AUTO) 92.5 % (43.0-81.0); PLATELET COUNT (AUTO) 315 K/uL (150-450); RED BLOOD CELL COUNT(AUTO) 3.99 MIL/uL (4.5-6.0); WHITE BLOOD COUNT (AUTO) 17.2 K/uL (4.3-11.0)
[2022-08-04 08:50] LABS: CALCIUM, SERUM 8.2 mg/dL (8.5-10.1); CHLORIDE 114 mmol/L (98-107); CREATININE 4.2 mg/dL (0.6-1.3); POTASSIUM 3.7 mmol/L (3.5-5.1); SODIUM SERUM 151 mmol/L (136-145)
[2022-08-04 09:04] LABS: CARBON DIOXIDE 14 mmol/L (21-32)
[2022-08-04] MEDS: HEPARIN SODIUM, PORCINE 5000 UNITS/1 ML VIAL SQ SCH ×2 (09:58→18:10)
[2022-08-04] MEDS: FLUCONAZOLE (100 MG) 100 MG TABLET PO SCH (09:58)
[2022-08-04] MEDS: METOPROLOL TARTRATE 25 MG TABLET PO SCH ×2 (09:59→17:00)
[2022-08-04] MEDS: DOCUSATE SODIUM 250 MG CAPSULE PO SCH ×2 (09:59→17:00)
[2022-08-04] MEDS: TAMSULOSIN 0.4 MG CAP.SR.24H PO SCH (09:59)
[2022-08-04] MEDS: QUETIAPINE FUMARATE 25 MG TABLET PO SCH ×3 (09:59→17:00)
[2022-08-04] MEDS: ASPIRIN EC 81 MG TABLET.DR PO SCH (09:59)
[2022-08-04] MEDS: TICAGRELOR 90 MG TABLET PO SCH ×2 (10:00→17:00)
--- NOTE | 2022-08-04 10:00 | NUR ---
RN NOTE Larimer from lab called for critical value, blood glucose is 493. Rechecked blood sugar, 417. Patient has scheduled Novolog 25 units, given to patient. Dr. Gonzalez notified.
[2022-08-04] MEDS: INSULIN LISPRO/ASPART 100 UNIT/ML CARTRIDGE SQ SCH ×2 (10:14→18:30)
[2022-08-04 10:26] LABS: GLUCOSE 493 mg/dL (74-106); UREA NITROGEN, BLOOD 97 mg/dL (7-18)
[2022-08-04] MEDS ORDERED: IV NS 0.9% 500 ML IV ONE (15:30)
--- NOTE | 2022-08-04 18:00 | NUR ---
RN NOTE Patient BP was 80/40, rechecked manually remains the same. Dr. Gonzalez notified and ordered 500 cc Ns bolus. After bolus BP went up to 106/55, patient still lethargic but arousable to pain. HR is 88, Temp 98.6, SPO2 96% on room air and blood glucose is 178. Dr. Gonzalez again was notified of patient's condition after giving bolus. 1700 scheduled medications not given due to lethargic state.
--- NOTE | 2022-08-04 19:30 | NUR ---
MS RN CLOSING NOTE Patient in bed, remains lethargic. A/O x 1. On room air, breathing evenly and unlabored. No SOB or s/s of distress noted. IV access on LFA #22 infusing 1/2 NS at 100 ml/hr. Roberts catheter in place draining to an kosta colored urine with an output of 650 cc. Patient kept clean and dry. Safety precautions in place: bed in low, locked position; siderails up x 2, call light within reach. Will endorse to mainspring winder and oiler nurse for BIJAN.
[2022-08-04 20:00] VITALS: BP 98/46
--- NOTE | 2022-08-04 20:30 | NUR ---
MS RN OPENING NOTES: RECEIVED PATIENT SLEEP IN BED AROUSABLE TO VERBAL AND PAIN STIMULI, BED IN LOW POSITION CALL LIGHTS WITHIN REACH, NO COMPLAIN OF PAIN AND DISCOMFORT AT THIS TIME, PATIENT WAS NOTED LETHARGIC AND POSITIVE WITH BODY TWITCHING, POSITIVE WITH BILATERAL GRIFT AND RESPONSIVE TO PAIN WITH SCREAMING WHEN LEGS WAS LIFTED, V/S ARE WITHIN THE NORMAL RANGES, O2 AT 93-94 PERCENT ROOM AIR, AM/PM CN WAS MADE AWARE AND ASSESS, NOTIFIED HOSPITALIST PATIENT HAS HX OF [place] PER HOSPITALIST, IV LINE AT LFA#22 WITH ONGOING 1/2 NSS@100ML/HR INFUSING WELL, PATIENT KEPT CLEAN AND DRY ALL NEEDS MET WILL CONTINUE TO MONITOR.
[2022-08-04] MEDS: DONEPEZIL 5 MG TABLET PO SCH ×2 (22:00→22:59)
[2022-08-04] MEDS: ATORVASTATIN 10 MG TABLET PO SCH ×2 (22:00→23:00)
[2022-08-04] MEDS: INSULIN GLARGINE, 100 UNIT/ML CARTRIDGE SQ SCH (22:26)
[2022-08-04] MEDS: *INSULIN ASPART NOVOLOG 100 UNIT/ML CARTRIDGE SQ PRN (22:40)
--- NOTE | 2022-08-04 22:44 | NUR ---
RN NOTES: BLOOD SUGAR-239 / 4 UNITS NOVOLOG HS INSULIN GIVEN PER SLIDING SCALE.
--- NOTE | 2022-08-04 22:46 | NUR ---
MUKESH NOTES: NIGHT MEDICATION NOT GIVEN PATIENT WAS LETHARGIC AND SLEEPY TO TAKE MEDICINE. Addendum: 08/05/22 at 0016 by DOMENICO KING RN RN NOTES: PATIENT MEDICATION SIMVASTATIN AND DONEPEZIL HS WAS GIVEN PATIENT STARTED TO BECOME FULLY AWAKE
[2022-08-04] MEDS ORDERED: LORAZEPAM INJ 2 MG/ML VIAL IV ONE (23:30)
[2022-08-05 04:00] VITALS: BP 132/58
[2022-08-05] MEDS: METRONIDAZOLE 500MG/ NS 100ML 500 MG in PREMIX 1 EA IV SCH ×3 (04:53→21:56)
[2022-08-05 06:19] LABS: BASOPHILS % (AUTO) 0.1 % (0.0-2.0); EOSINOPHILS % (AUTO) 1.8 % (0.0-6.0); HEMATOCRIT 35 % (39-51); HEMOGLOBIN 11.3 g/dL (13.5-17.5); LYMPHOCYTES # (AUTO) 1.2 K/uL (0.8-4.8); MEAN CORPUSCULAR HGB CONC 32 g/dl (31.0-36.0); MEAN CORPUSCULAR VOLUME 90 fL (80-96); MONOCYTES # (AUTO) 0.8 K/uL (0.1-1.30); MONOCYTES % (AUTO) 5.4 % (2.0-12.0); NEUTROPHILS # (AUTO) 12.6 K/uL (1.8-8.9); NEUTROPHILS % (AUTO) 84.7 % (43.0-81.0); PLATELET COUNT (AUTO) 287 K/uL (150-450); RED BLOOD CELL COUNT(AUTO) 3.89 MIL/uL (4.5-6.0); WHITE BLOOD COUNT (AUTO) 14.9 K/uL (4.3-11.0)
[2022-08-05] MEDS: IV 1/2NS 1000 ML 1,000 ML IV SCH (06:20)
--- NOTE | 2022-08-05 06:23 | NUR ---
MS RN CLOSING NOTES: RECEIVED PATIENT SLEEP IN BED AROUSABLE TO VERBAL STIMULI, BED IN LOW POSITION CALL LIGHTS WITHIN REACH, NO COMPLAIN OF PAIN AND DISCOMFORT AT THIS TIME, ON ROOM AIR SATURATING WELL, WEEKLY SKIN ASSESSMENT DONE AND DOCUMENTED, IV LINE AT LFA#22 WITH ONGOING 1/2 NSS@100ML/HR INFUSING WELL, CHAVEZ CATHETER WITH 700 CC URINE OUTPUT, PATIENT KEPT CLEAN AND DRY ALL NEEDS MET WILL CONTINUE TO MONITOR-
[2022-08-05 06:34] LABS: CALCIUM, SERUM 8.2 mg/dL (8.5-10.1); CARBON DIOXIDE 19 mmol/L (21-32); CHLORIDE 120 mmol/L (98-107); CREATININE 3.5 mg/dL (0.6-1.3); GLUCOSE 338 mg/dL (74-106); MAGNESIUM 2.7 mg/dL (1.8-2.4); PHOSPHORUS 3.5 mg/dL (2.5-4.9); POTASSIUM 3.3 mmol/L (3.5-5.1); UREA NITROGEN, BLOOD 25 mg/dL (7-18)
[2022-08-05 06:41] LABS: SODIUM SERUM 157 mmol/L (136-145)
[2022-08-05] MEDS: INSULIN ASPART/LISPRO 100 UNIT/ML CARTRIDGE SQ PRN ×3 (06:50→17:17)
[2022-08-05 07:00] VITALS: BP 122/66
[2022-08-05] MEDS: IV D5/0.45 NACL 1,000 ML IV PRN ×2 (07:30→17:44)
--- NOTE | 2022-08-05 07:30 | NUR ---
RN OPENING NOTE PT ASLEEP IN BED, EASILY AWAKENED BED IN LOW POSITION CALL LIGHTS WITHIN REACH, DENIES PAIN THOUGH CONFUSED, V/S ARE WITHIN THE NORMAL RANGES, O2 96% ROOM AIR, IV SITE LFA#22 WITH ONGOING 1/2 NSS@100ML/HR INFUSING WELL, PATIENT KEPT CLEAN AND DRY ALL NEEDS MET WILL CONTINUE TO MONITOR. ASSIST.
[2022-08-05] MEDS: BLOOD SUGAR DIAGNOSTIC 1 EACH STRIP IN SCH ×4 (07:31→21:56)
[2022-08-05] MEDS: CIPROFLOXACIN IV RTU 400 MG in PREMIX 1 EA IV SCH (08:26)
[2022-08-05] MEDS: DOCUSATE SODIUM 250 MG CAPSULE PO SCH ×2 (08:37→16:45)
[2022-08-05] MEDS: FLUCONAZOLE (100 MG) 100 MG TABLET PO SCH (08:37)
[2022-08-05] MEDS: PANTOPRAZOLE 40 MG TABLET.DR PO SCH (08:37)
[2022-08-05] MEDS: ASPIRIN EC 81 MG TABLET.DR PO SCH (08:37)
[2022-08-05] MEDS: METOPROLOL TARTRATE 25 MG TABLET PO SCH ×2 (08:38→16:46)
[2022-08-05] MEDS: TAMSULOSIN 0.4 MG CAP.SR.24H PO SCH (08:39)
[2022-08-05] MEDS: QUETIAPINE FUMARATE 25 MG TABLET PO SCH ×3 (08:47→16:56)
[2022-08-05] MEDS: INSULIN LISPRO/ASPART 100 UNIT/ML CARTRIDGE SQ SCH ×2 (08:53→18:38)
[2022-08-05] MEDS: HEPARIN SODIUM, PORCINE 5000 UNITS/1 ML VIAL SQ SCH (08:54)
[2022-08-05] MEDS: TICAGRELOR 90 MG TABLET PO SCH ×2 (09:02→16:55)
[2022-08-05] MEDS ORDERED: POTASSIUM CHLORIDE 20 MEQ TAB.PRT.SR PO ONE (11:00)
[2022-08-05] MEDS ORDERED: POTASSIUM CHLORIDE 20 MEQ POWDER PACKET PO ONE (11:00)
--- NOTE | 2022-08-05 12:15 | NUR ---
RN NOTE- PT COUGHING. NOTED RALES UPPER LOBES . CXR ORDERED. R/O ASPIRATION
--- NOTE | 2022-08-05 13:09 | NUR ---
RN NOTE- TREMORS PRESENT, FAMILY STATES PT NON VERBAL NOW. DR TUCKER ORDERED CT HEAD. COMPLIED
[2022-08-05 16:00] VITALS: BP 87/47
[2022-08-05 16:20] VITALS: BP 97/51
--- NOTE | 2022-08-05 18:27 | NUR ---
RN CLOSING NOTE PATIENT IN BED, WITH HOB ELEVATED, ORIENTED TO SELF ONLY. NON-VERBAL. AFEBRILE AND NOT ON ANY FORM OF ACUTE DISTRESS. BREATHING EVEN AND NON LABORED. NO SOB/WHEEZING NOTED. CHEST X-RAY 1 VIEW DONE D/T COUGHING AND RELAYED RESULT TO MD, PATIENT IS ALREADY ON IV ATB. MONITORED FOR ANY ADVERSE REACTION. WITH INTACT CHAVEZ CATHETER, DRAINING WELL WITH YELLOW URINE OUTPUT, NO HEMATURIA OR SEDIMENT NOTED. MEDICATED ORDERED. PT W TREMULOUSNESS AND SEEMING RT SIDE WEAKNESS. CT HEAD ORDERED AND COMPLETED. AWAITING RESULTS. ENCOURAGED TO INCREASE ORAL INTAKE. SAFETY MEASURES IN PLACE. KEPT BED IN LOWEST AND LOCKED POSITION. SIDE RAILS UP TO PREVENT INJURY. CALL LIGHT WITHIN EASY REACH. ALL NURSING NEEDS ATTENDED.
--- NOTE | 2022-08-05 19:35 | NUR ---
RN OPENING NOTE PATIENT IN BED. A/OX1. NO S/S OF DISTRESS, BREATHING WITHOUT DIFFICULTY ON ROOM AIR. D5-1/2NS @100ML/HR INTACT AND PATENT. SAFETY MEASURES IN PLACE: BED LOCKED IN PLACE AND AT LOWEST POSITION, RAILS UP X2, CALL BAEZ WITHIN REACH. PATIENT STABLE. WILL CONTINUE TO MONITOR.
[2022-08-05 20:00] VITALS: BP 116/50
[2022-08-05] MEDS: INSULIN GLARGINE, 100 UNIT/ML CARTRIDGE SQ SCH (22:01)
[2022-08-05] MEDS: *INSULIN ASPART NOVOLOG 100 UNIT/ML CARTRIDGE SQ PRN (22:03)
[2022-08-06] MEDS: METRONIDAZOLE 500MG/ NS 100ML 500 MG in PREMIX 1 EA IV SCH ×2 (06:09→13:06)
[2022-08-06 06:13] LABS: CALCIUM, SERUM 8.1 mg/dL (8.5-10.1); CARBON DIOXIDE 22 mmol/L (21-32); CHLORIDE 123 mmol/L (98-107); CREATININE 3.1 mg/dL (0.6-1.3); GLUCOSE 331 mg/dL (74-106); POTASSIUM 3.2 mmol/L (3.5-5.1); UREA NITROGEN, BLOOD 66 mg/dL (7-18)
[2022-08-06 06:14] LABS: EOSINOPHILS % (AUTO) 2.2 % (0.0-6.0); HEMATOCRIT 33 % (39-51); HEMOGLOBIN 10.9 g/dL (13.5-17.5); LYMPHOCYTES % (AUTO) 7.4 % (20.0-44.0); MEAN CORPUSCULAR HGB CONC 33 g/dl (31.0-36.0); MEAN CORPUSCULAR VOLUME 89 fL (80-96); MONOCYTES # (AUTO) 0.7 K/uL (0.1-1.30); MONOCYTES % (AUTO) 5.7 % (2.0-12.0); NEUTROPHILS # (AUTO) 11.1 K/uL (1.8-8.9); NEUTROPHILS % (AUTO) 84.7 % (43.0-81.0); PLATELET COUNT (AUTO) 287 K/uL (150-450); RED BLOOD CELL COUNT(AUTO) 3.73 MIL/uL (4.5-6.0); WHITE BLOOD COUNT (AUTO) 13.2 K/uL (4.3-11.0)
[2022-08-06] MEDS: IV D5/0.45 NACL 1,000 ML IV PRN (06:23)
[2022-08-06 06:49] LABS: SODIUM SERUM 157 mmol/L (136-145)
[2022-08-06] MEDS: INSULIN ASPART/LISPRO 100 UNIT/ML CARTRIDGE SQ PRN ×3 (06:56→17:51)
--- NOTE | 2022-08-06 07:06 | NUR ---
RN CLOSING NOTE PATIENT AWAKE IN BED. A/OX1. NO S/S OF DISTRESS, BREATHING WITHOUT DIFFICULTY ON ROOM AIR. LFA #22 INTACT AND PATENT W/ D5-1/2NS @100ML/HR. SAFETY MEASURES IN PLACE: BED LOCKED IN PLACE AND AT LOWEST POSITION, RAILS UP X2, CALL BAEZ WITHIN REACH. WILL ENDORSE TO NEXT SHIFT FOR BIJAN.
--- NOTE | 2022-08-06 07:32 | NUR ---
MS RN OPENING NOTE PATIENT IN BED; AWAKE, EASILY AROUSABLE, A/O X 1, STABLE ON ROOM AIR BREATHING EVEN AND NONLABORED. IN NO ACUTE DISTRESS NOTED. NO S/S OF ANY PAIN OR DISCOMFORT AT THIS TIME. WITH IV ACCESS ON LEFT FOREARM 22G; PATENT AND INTACT INFUSING WITH D5 1/2 NS 1L RUNNING @ 100 ML/HR; FLUSHES WELL. WITH CHAVEZ CATHETER FR [address] DRAINING TO DARK YELLOW URINE. WITH BILATERAL SOFT WRIST RESTRAINT; SKIN AND CIRCULATION CHECKED, WNL. SAFETY MEASURES IN PLACE: CALL LIGHT AND TRAY TABLE WITHIN REACH, SIDE RAILS UP X 3, HEAD OF BED ELEVATED BED IN LOWEST LOCKED POSITION. WILL CONTINUE TO MONITOR.
[2022-08-06] MEDS: BLOOD SUGAR DIAGNOSTIC 1 EACH STRIP IN SCH ×4 (07:53→21:53)
[2022-08-06] MEDS: PANTOPRAZOLE 40 MG TABLET.DR PO SCH (07:56)
[2022-08-06 08:00] VITALS: BP 145/62
[2022-08-06] MEDS: CIPROFLOXACIN IV RTU 400 MG in PREMIX 1 EA IV SCH (08:15)
[2022-08-06] MEDS: IV D5W 1,000 ML IV SCH ×2 (08:15→18:25)
[2022-08-06] MEDS: POTASSIUM CL. PREMIX PERIPHER. 50 ML IV SCH ×4 (08:15→11:01)
--- NOTE | 2022-08-06 08:15 | NUR ---
RN NOTES D5 1/2 NS IV FLUID CHANGED TO D5 WATER AT 100 ML/HR ORDERED
[2022-08-06] MEDS: TICAGRELOR 90 MG TABLET PO SCH ×2 (09:17→16:49)
[2022-08-06] MEDS: ASPIRIN EC 81 MG TABLET.DR PO SCH (09:18)
[2022-08-06] MEDS: QUETIAPINE FUMARATE 25 MG TABLET PO SCH ×3 (09:18→16:49)
[2022-08-06] MEDS: DOCUSATE SODIUM 250 MG CAPSULE PO SCH ×2 (09:18→16:48)
[2022-08-06] MEDS: FLUCONAZOLE (100 MG) 100 MG TABLET PO SCH (09:18)
[2022-08-06] MEDS: TAMSULOSIN 0.4 MG CAP.SR.24H PO SCH (09:18)
[2022-08-06] MEDS: METOPROLOL TARTRATE 25 MG TABLET PO SCH ×2 (09:19→16:49)
[2022-08-06] MEDS: INSULIN LISPRO/ASPART 100 UNIT/ML CARTRIDGE SQ SCH (09:34)
--- NOTE | 2022-08-06 11:00 | NUR ---
RN NOTES LFA IV ACCESS HAS BEEN INFILTRATED, NEW ACCESS ESTABLISHED AT LW G#20, PATENT, FLUSHING WELL.
[2022-08-06 15:42] LABS: CALCIUM, SERUM 8.1 mg/dL (8.5-10.1); CARBON DIOXIDE 23 mmol/L (21-32); CHLORIDE 124 mmol/L (98-107); CREATININE 3.1 mg/dL (0.6-1.3); GLUCOSE 174 mg/dL (74-106); POTASSIUM 3.4 mmol/L (3.5-5.1); UREA NITROGEN, BLOOD 63 mg/dL (7-18)
[2022-08-06 15:48] LABS: SODIUM SERUM 158 mmol/L (136-145)
[2022-08-06 16:00] VITALS: BP 111/56
--- NOTE | 2022-08-06 16:15 | NUR ---
RN NOTES PATIENT IS FEBRILE AT 102.3, HR -112, RR-24. SODIUM OF 158. REPORTED TO JOSÉ MIGUEL TORRES, ORDERED BLOOD CULTURE X2, UA, CXR STAT AND TYLENOL. CARRIED OUT.
[2022-08-06] MEDS: ACETAMINOPHEN 650 MG/SUPP.RECT RC PRN (16:49)
--- NOTE | 2022-08-06 16:55 | NUR ---
RN NOTES ADMINISTERED TYLENOL 650 MG SUPPOSITORY AFTER THE STAT BLOOD DRAW. CONTINUED TEPID SPONGE BATH FOR THE PATIENT TO LOWER TEMPERATURE.
--- NOTE | 2022-08-06 17:13 | NUR ---
RN NOTES - [facility] CALLED LAB TO REPORT THAT UA SPECIMEN HAS BEEN TAKEN AND PLACED IN THE REFRIGERATOR.
[2022-08-06 18:07] VITALS: BP 110/50
[2022-08-06] MEDS ORDERED: INSULIN LISPRO/ASPART 100 UNIT/ML CARTRIDGE SQ SCH (18:30)
--- NOTE | 2022-08-06 18:33 | NUR ---
MS RN CLOSING NOTES PATIENT IS LYING IN BED WITH THE HEAD OF BED ELEVATED, PATIENT IS AOX1, EASILY AROUSABLE WHEN NAME IS CALLED, NON-VERBAL, PATIENT'S CURRENT VITAL SIGNS ARE FOLLOWS T- 99.6, BP- 110/50, SD-108, RR-22. LAST BLOOD GLUCOSE WAS 191 AT 1739, PATIENT DIDN'T EAT DINNER, DOSE OF 28 U OF INSULIN LISPRO BIDPC HAS BEEN HELD OFF PER MD. IV ACCESS ON RIGHT WRIST WITH G#20 RUNNING D5W AT 100 ML/HR INTACT, PATENT, FLUSHING WELL. PATIENT HAS BILATERAL SOFT RESTRAINTS ON BOTH HANDS, CHECKED FOR PERFUSION HOURLY, NO COMPLICATION NOTED. ALL DUE MEDS GIVEN, ALL NEEDS MET. SAFETY PRECAUTIONS MAINTAINED: BED AT LOWEST POSITION, BED ALARM,ON. SIDE RAILS UP X3, TRAY TABLE AND CALL LIGHT WITHIN REACH. WILL ENDORSE TO THE OCCUPATIONAL THERAPY DIRECTOR.
[2022-08-06 18:45] LABS: BILIRUBIN,URINE NEGATIVE (NEGATIVE); COLOR,URINE YELLOW (YELLOW); LEUKOCYTE ESTERASE ,URINE MODERATE (NEGATIVE); NITRITE, URINE NEGATIVE (NEGATIVE); PROTEIN,URINE 100 mg/dl (NEGATIVE); UGLUCOSE NEGATIVE (NEGATIVE); UROBILINOGEN,URINE 0.2 EU/dL (0.2)
[2022-08-06 19:04] LABS: BACTERIA,URINE Few /HPF (None Seen); RBC,URINE 0-2 /HPF (0-2); SQUAMOUS EPITHELIAL CELL,UR Few /HPF (None Seen); WBC,URINE TOO NUMEROUS TO COUN /HPF (0-3)
--- NOTE | 2022-08-06 19:51 | NUR ---
MS RN OPENING NOTES PATIENT IS LYING IN BED WITH THE HEAD OF BED ELEVATED, PATIENT IS AOX1, EASILY AROUSABLE WHEN NAME IS CALLED, NON-VERBAL, V ACCESS ON RIGHT WRIST WITH G#20 RUNNING D5W AT 100 ML/HR INTACT, PATENT, FLUSHING WELL. PATIENT HAS BILATERAL SOFT RESTRAINTS ON BOTH HANDS, WILL CHECKED FOR PERFUSION HOURLY, NO COMPLICATION NOTED., ALL NEEDS MET. SAFETY PRECAUTIONS MAINTAINED: BED AT LOWEST POSITION, BED ALARM,ON. SIDE RAILS UP X3, TRAY TABLE AND CALL LIGHT WITHIN REACH.
--- NOTE | 2022-08-06 20:30 | NUR ---
rn note while changing pt and administering tap water enema noted pt has sacrum redness and bilateral heel blisters mepilex applied on heels and offloaded. mepilex applied to sacrum wound consult ordered.
[2022-08-06 20:58] VITALS: BP 108/58
[2022-08-06] MEDS: MEROPENEM 500 MG in IV NS 0.9% 50 ML IV SCH (21:22)
[2022-08-06] MEDS ORDERED: INSULIN GLARGINE, 100 UNIT/ML CARTRIDGE SQ SCH (22:00)
[2022-08-06] MEDS: ATORVASTATIN 10 MG TABLET PO SCH (22:22)
[2022-08-06] MEDS: DONEPEZIL 5 MG TABLET PO SCH (22:22)
[2022-08-06] MEDS: *INSULIN ASPART NOVOLOG 100 UNIT/ML CARTRIDGE SQ PRN (22:38)
[2022-08-07] MEDS: IV D5W 1,000 ML IV SCH ×2 (04:07→15:00)
[2022-08-07 06:32] LABS: BASOPHILS % (AUTO) 0.2 % (0.0-2.0); EOSINOPHILS % (AUTO) 3.8 % (0.0-6.0); HEMATOCRIT 35 % (39-51); HEMOGLOBIN 11.1 g/dL (13.5-17.5); LYMPHOCYTES # (AUTO) 1.2 K/uL (0.8-4.8); LYMPHOCYTES % (AUTO) 12.3 % (20.0-44.0); MEAN CORPUSCULAR HGB CONC 32 g/dl (31.0-36.0); MEAN CORPUSCULAR VOLUME 90 fL (80-96); MONOCYTES # (AUTO) 0.7 K/uL (0.1-1.30); NEUTROPHILS # (AUTO) 7.6 K/uL (1.8-8.9); NEUTROPHILS % (AUTO) 76.7 % (43.0-81.0); PLATELET COUNT (AUTO) 247 K/uL (150-450); RED BLOOD CELL COUNT(AUTO) 3.83 MIL/uL (4.5-6.0); WHITE BLOOD COUNT (AUTO) 9.9 K/uL (4.3-11.0)
[2022-08-07] MEDS: BLOOD SUGAR DIAGNOSTIC 1 EACH STRIP IN SCH ×4 (06:33→23:26)
[2022-08-07] MEDS: INSULIN ASPART/LISPRO 100 UNIT/ML CARTRIDGE SQ PRN ×3 (06:35→18:37)
--- NOTE | 2022-08-07 07:20 | NUR ---
MS RN OPENING NOTES RECEIVED PATIENT IN BED ASLEEP, WOKEN UP BY TOUCH. UNABLE TO VERBALIZE NEEDS. WAKES UP TO CALL AT TIMES. WITH IV ACCESS ON THE LEFT FOREARM G 20 WITH D5W RUNNING AT 100ML/HR INFUSING WELL. MAINTAINED ON MODERATE TO HIGH BACK REST. WITH CHAVEZ CATHETER TO URINE BAG WITH LANDY COLORED URINE. WITH BILATERAL SOFT RESTRAINTS WITH GOOD CIRCULATION ON BOTH HANDS. SAFETY PRECAUTIONS MAINTAINED: BED AT LOWEST POSITION, LOCKED POSITION, BED ALARM,ON. SIDE RAILS UP X3, TRAY TABLE AND CALL LIGHT WITHIN REACH.
[2022-08-07 07:23] LABS: CALCIUM, SERUM 7.9 mg/dL (8.5-10.1); CARBON DIOXIDE 22 mmol/L (21-32); CHLORIDE 119 mmol/L (98-107); CREATININE 3.1 mg/dL (0.6-1.3); POTASSIUM 3.6 mmol/L (3.5-5.1); SODIUM SERUM 153 mmol/L (136-145); UREA NITROGEN, BLOOD 55 mg/dL (7-18)
[2022-08-07] MEDS: PANTOPRAZOLE 40 MG TABLET.DR PO SCH (07:44)
[2022-08-07 08:00] VITALS: BP 132/66
[2022-08-07 08:34] LABS: GLUCOSE 387 mg/dL (74-106)
[2022-08-07] MEDS: MEROPENEM 500 MG in IV NS 0.9% 50 ML IV SCH ×2 (08:36→20:53)
[2022-08-07] MEDS: ASPIRIN EC 81 MG TABLET.DR PO SCH (08:56)
[2022-08-07] MEDS: TAMSULOSIN 0.4 MG CAP.SR.24H PO SCH (08:56)
[2022-08-07] MEDS: METOPROLOL TARTRATE 25 MG TABLET PO SCH ×2 (08:57→17:00)
[2022-08-07] MEDS: DOCUSATE SODIUM 250 MG CAPSULE PO SCH ×2 (08:57→17:00)
[2022-08-07] MEDS: QUETIAPINE FUMARATE 25 MG TABLET PO SCH ×3 (08:57→17:00)
[2022-08-07] MEDS: FLUCONAZOLE (100 MG) 100 MG TABLET PO SCH (08:57)
[2022-08-07] MEDS: TICAGRELOR 90 MG TABLET PO SCH ×2 (09:07→17:00)
--- NOTE | 2022-08-07 09:39 | NUR ---
WOUND CARE CONSULT: PT PRESENTS WITH SACRAL INTACT DEEP TISSUE INJURY, RASH TO GROIN FOLDS AND PERINEUM AND BLANCHABLE REDNESS TO BILATERAL HEELS. RECOMMENDATIONS MADE FOR SKIN PROTECTION. DISCUSSED WITH NURSING STAFF. FIRST STEP LOW AIRLOSS MATTRESS IS ON ORDER. IN AGREEMENT WITH PLAN OF CARE. Addendum: 08/07/22 at 0940 by JOSTIN COATS WNROMELU Amended: Links added. Addendum: 08/07/22 at 0943 by JOSTIN COATS WNROMELU PER NURSING STAFF AND DIETITIAN, PT HAS POOR PO INTAKE.
--- NOTE | 2022-08-07 11:00 | NUR ---
MS RN NOTES PATIENT WAS NOT ABLE TO TOLERATE ORAL INTAKE. SPEECH THERAPIST SEEN THE PATIENT AND RECOMMEND NOTHING BY MOUTH FOR NOW UNTIL FURTHER RE-EVAL. MUKESH PIRES NOTIFIED.
--- NOTE | 2022-08-07 11:45 | NUR ---
MS RN NOTES NOTIFIED MD WALTERS REGARDING PATIENT'S CONDITION AND THE RECOMMENDATION FROM THE SPEECH THERAPIST THROUGH TEXT MESSAGE. REPLIED "THANKS".
[2022-08-07] MEDS: DOCUSATE SODIUM 100 MG CAPSULE PO SCH ×2 (11:50→17:00)
[2022-08-07] MEDS: POLYETHYLENE GLYCOL 3350 17 GM POWD.PACK PO SCH (11:55)
[2022-08-07 16:00] VITALS: BP 106/53
[2022-08-07] MEDS: CLOTRIMAZOLE 1% 15 GM TUBE TP SCH (17:00)
[2022-08-07] MEDS: INSULIN LISPRO/ASPART 100 UNIT/ML CARTRIDGE SQ SCH (18:22)
[2022-08-07] MEDS: ACETAMINOPHEN 650 MG/SUPP.RECT RC PRN (18:36)
--- NOTE | 2022-08-07 19:15 | NUR ---
MS RN NOTE PATIENT NOTED TO HAVE INCREASED RR AT 30'S, VS CHECKED AND NOTED TEMP AT 102.2, HR 94, BP 102/54, O2 SAT AT 95%. SUPPLEMENTAL OXYGEN GIVEN AT 3LPM VIA NASAL CANULA AND TYLENOL SUPPOSITORY ADMINISTERED PER RECTUM. COLD COMPRESS APPLIED ON ARMPITS AND ON THE GROIN AREA. WILL CONTINUE TO MONITOR PATIENT.
--- NOTE | 2022-08-07 19:20 | NUR ---
MS RN NOTE CHARGE NURSE NOTIFIED, ID CEE FERRIS NOTIFIED. PATIENT IS ON IV ANTIBIOTIC. NOT IN DISTRESS.
[2022-08-07 20:00] VITALS: BP 96/48
--- NOTE | 2022-08-07 20:10 | NUR ---
MS MUKESH NOTE SEEN BY ID CEE FERRIS. TEMPERATURE DOWN TO 100.2F. COOLING MEASURES CONTINUED. MAINTAINED ON NPO. IN STABLE CONDITION.
[2022-08-07] MEDS: DONEPEZIL 5 MG TABLET PO SCH (20:53)
[2022-08-07] MEDS: ATORVASTATIN 10 MG TABLET PO SCH (20:54)
--- NOTE | 2022-08-07 20:55 | NUR ---
MS RN NOTE LATEST TEMP AT 97.7, WITH OXYGEN AT 3LPM VIA NASAL CANULA. NO RESPIRATORY DISTRESS NOTED. IN STABLE CONDITION.
[2022-08-07] MEDS: INSULIN GLARGINE, 100 UNIT/ML CARTRIDGE SQ SCH (22:00)
[2022-08-08] MEDS: IV D5W 1,000 ML IV SCH ×3 (01:55→22:00)
--- NOTE | 2022-08-08 02:53 | NUR ---
MS RN NOTE PATIENT REMAINS AFEBRILE. IN STABLE CONDITION. OPENS EYES TO SLIGHT SOUND. COMFORT MEASURES PROVIDED.
--- NOTE | 2022-08-08 05:08 | NUR ---
MS RN NOTE ASSOCIATE CHIEF NURSE MARIA EUGENIA RELAYED LATEST PRELIMINARY AEROBIC CULTURE RESULT WITH BUDDING YEAST. MD NOTIFIED WITH NO NEW ORDER AT THIS TIME.
[2022-08-08 06:47] LABS: BASOPHILS % (AUTO) 0.2 % (0.0-2.0); EOSINOPHILS % (AUTO) 3.8 % (0.0-6.0); HEMATOCRIT 33 % (39-51); HEMOGLOBIN 10.8 g/dL (13.5-17.5); LYMPHOCYTES # (AUTO) 1.5 K/uL (0.8-4.8); LYMPHOCYTES % (AUTO) 13.6 % (20.0-44.0); MEAN CORPUSCULAR HGB CONC 32 g/dl (31.0-36.0); MEAN CORPUSCULAR VOLUME 89 fL (80-96); MONOCYTES # (AUTO) 0.8 K/uL (0.1-1.30); MONOCYTES % (AUTO) 7.6 % (2.0-12.0); NEUTROPHILS # (AUTO) 8.1 K/uL (1.8-8.9); NEUTROPHILS % (AUTO) 74.8 % (43.0-81.0); PLATELET COUNT (AUTO) 219 K/uL (150-450); RED BLOOD CELL COUNT(AUTO) 3.72 MIL/uL (4.5-6.0); WHITE BLOOD COUNT (AUTO) 10.8 K/uL (4.3-11.0)
[2022-08-08] MEDS: INSULIN ASPART/LISPRO 100 UNIT/ML CARTRIDGE SQ PRN ×2 (06:52→13:22)
--- NOTE | 2022-08-08 06:58 | NUR ---
MS RN CLOSING NOTES PATIENT IN BED ASLEEP, WOKEN UP BY TOUCH. UNABLE TO VERBALIZE NEEDS. WITH IV ACCESS ON THE LEFT FOREARM G 20 WITH D5W RUNNING AT 100ML/HR INFUSING WELL. MAINTAINED ON MODERATE TO HIGH BACK REST. WITH CHAVEZ CATHETER TO URINE BAG WITH LANDY COLORED URINE. MAINTAINED ON HIGH BACK REST. ON KCI MATTRESS. SAFETY PRECAUTIONS MAINTAINED: BED AT LOWEST POSITION, LOCKED POSITION, BED ALARM,ON. SIDE RAILS UP X3, TRAY TABLE AND CALL LIGHT WITHIN REACH. ENDORSED TO NEXT SHIFT FOR CONTINUITY OF CARE. Addendum: 08/08/22 at 0700 by LEXIS RICHARDSON RN addendum PATIENT ALERT AND ORIENTED X 1, TALKS, RESPONDS VERBALLY
--- NOTE | 2022-08-08 07:30 | NUR ---
MS RN OPENING NOTES PATIENT IN BED ASLEEP, AROUSABLE BY TOUCH . UNABLE TO VERBALIZE NEEDS. WITH IV ACCESS ON THE LEFT FOREARM G 20 WITH D5W RUNNING AT 100ML/HR INFUSING WELL. MAINTAINED ON MODERATE TO HIGH BACK REST. WITH F/C TO URINE BAG WITH LANDY COLORED URINE , NO SOB OR DISTRESS NOTED . NO PAIN AND DISCOMFORT NOTED , ON NPO AT THIS TIME AND FOR REPEAT SWALLOW EVAL BY BOWSTRING MAKER , ON KCI MATTRESS. SAFETY PRECAUTIONS MAINTAINED: BED AT LOWEST POSITION, LOCKED POSITION, BED ALARM,ON. SIDE RAILS UP X3, TRAY TABLE AND CALL LIGHT WITHIN REACH. WILL CONTINUE TO MONITOR FOR ANY CHANGES .
[2022-08-08 07:34] LABS: CALCIUM, SERUM 7.5 mg/dL (8.5-10.1); CARBON DIOXIDE 23 mmol/L (21-32); CHLORIDE 113 mmol/L (98-107); CREATININE 2.8 mg/dL (0.6-1.3); POTASSIUM 3.3 mmol/L (3.5-5.1); SODIUM SERUM 145 mmol/L (136-145); UREA NITROGEN, BLOOD 45 mg/dL (7-18)
[2022-08-08 08:07] LABS: GLUCOSE 382 mg/dL (74-106)
[2022-08-08] MEDS: BLOOD SUGAR DIAGNOSTIC 1 EACH STRIP IN SCH ×4 (08:25→21:33)
[2022-08-08 08:45] VITALS: BP 137/65
[2022-08-08] MEDS: FLUCONAZOLE (100 MG) 100 MG TABLET PO SCH (09:30)
[2022-08-08] MEDS: DOCUSATE SODIUM 250 MG CAPSULE PO SCH ×2 (09:30→17:05)
[2022-08-08] MEDS: ASPIRIN EC 81 MG TABLET.DR PO SCH (09:30)
[2022-08-08] MEDS: DOCUSATE SODIUM 100 MG CAPSULE PO SCH ×2 (09:30→17:05)
--- NOTE | 2022-08-08 09:30 | NUR ---
RN NOTES PATIENT SEEN BY PRACTICAL NURSE AND TRIED TO DO SWALLOW EVAL AGAIN AND PATIENT CAN HAVE PUREED DIET AND NECTAR THICKENED LIQUID , AND NO STRAW WHEN DRINKING LIQUID , TRIED WITH MEDICATIONS MIXED WITH WITH APPLE SAUCE AND PATIENT WAS ABLE TO SWALLOW THE MEDICATIONS AND NO S/S OF ASPIRATIONS NOTED
[2022-08-08] MEDS: METOPROLOL TARTRATE 25 MG TABLET PO SCH ×2 (09:31→17:06)
[2022-08-08] MEDS: POLYETHYLENE GLYCOL 3350 17 GM POWD.PACK PO SCH (09:39)
[2022-08-08] MEDS: TAMSULOSIN 0.4 MG CAP.SR.24H PO SCH (09:43)
[2022-08-08] MEDS: PANTOPRAZOLE 40 MG TABLET.DR PO SCH (09:43)
[2022-08-08] MEDS: TICAGRELOR 90 MG TABLET PO SCH ×2 (09:43→17:05)
[2022-08-08] MEDS: CLOTRIMAZOLE 1% 15 GM TUBE TP SCH ×2 (09:45→17:07)
[2022-08-08] MEDS: MEROPENEM 500 MG in IV NS 0.9% 50 ML IV SCH ×2 (09:45→21:41)
[2022-08-08] MEDS: INSULIN LISPRO/ASPART 100 UNIT/ML CARTRIDGE SQ SCH ×2 (10:01→18:30)
[2022-08-08] MEDS: QUETIAPINE FUMARATE 25 MG TABLET PO SCH (10:02)
[2022-08-08] MEDS: APIXABAN 2.5 MG TABLET PO SCH ×2 (10:17→17:08)
--- NOTE | 2022-08-08 10:34 | NUR ---
RN NOTES D5 WATE IV ON HOLD DUE TO TO WAITING FOR MIDLINE INSERTION , IV ACCESS IN LEFT ARM CANT BE USE DUE TO PATIENT POSITIVE FOR DVT
--- NOTE | 2022-08-08 14:36 | NUR ---
RN NOTES BLOOD SUGAR WAS CHECKED AND PATIENT BS RESULT OF 60 AND MD AWARE , PATIENT GIVNE ORANGE JUICE WITH THICKENER AND TOLERATED WELL
[2022-08-08 16:44] VITALS: BP 118/58
--- NOTE | 2022-08-08 17:25 | NUR ---
RN NOTES BLOOD SUGAR WAS RECHECKED AGAIN AND WITH RESULT OF 109 , NO CHANGES NOTED WITH THE PATIENT AND MD DR TUCKER AWARE .
--- NOTE | 2022-08-08 18:49 | NUR ---
MS RN CLOSING NOTES PATIENT IN BED AWAKE BY TOUCH . UNABLE TO VERBALIZE NEEDS. A/O X1 SALVADOREAN SPEAKING AND ULTRASOUND DONE ON THE LEFT UPPER ARM AND NOTED WITH POSITIVE DVT , NO BLOOD BP , NO IV OR NO BLOOD DRAW ON THE LEFT ARM , ORDERED FOR MIDLINE AND INSERTED ON RIGHT UPPPER ARM #18 WITH D5 WATER OF 100CC /HR , ALL DUE MEDS GIVEN CRUSHED MIXED WITH APPLE SAUCE AND IV ATB GIVEN , . MAINTAINED ON MODERATE TO HIGH BACK REST. WITH F/C TO URINE BAG WITH LANDY COLORED URINE , NO SOB OR DISTRESS NOTED . NO PAIN AND DISCOMFORT NOTED , SEEN BY CLOTH CALENDER FOR SWALLOW EVAL DONE AND WITH RECOMMENDATION OF PUREED DIET WITH NECTAR THICKENED LIQUID AND WITH ORDER NOTED AND CARRIED OUT , ON I MATTRESS. SAFETY PRECAUTIONS MAINTAINED: BED AT LOWEST POSITION, LOCKED POSITION, BED ALARM,ON. SIDE RAILS UP X3, TRAY TABLE AND CALL LIGHT WITHIN REACH. WILL CONTINUE TO MONITOR FOR ANY CHANGES .
--- NOTE | 2022-08-08 19:00 | NUR ---
REICEIVED IN BED ALERT TO NURSE AT THE BEDSIDE NONVERBAL CALM AND COOPERATIVE NOTED LEFT ARM IS SWOLLEN ELEVATED ON A PILLOW WITH REPORT FROM THE DAY SHIFT STATED HE HAS A DVT LEFT ARM WILL POST A SIGN TO ALERT HOSPITAL STAFF
--- NOTE | 2022-08-08 19:30 | NUR ---
bLOOD PRESSURE 79/31 EYES OPEN ALERT SKIN WARM AND DRY NOTIFIED NEW ORDER TO INFUSE 250 ML NS NOW USING THE RIGHT ARM START RIGHT AWAY ORDERED
[2022-08-08 20:00] VITALS: BP 79/31
[2022-08-08] MEDS ORDERED: IV NS 0.9% 250 ML IV ONE (20:30)
[2022-08-08] MEDS: DONEPEZIL 5 MG TABLET PO SCH (21:34)
[2022-08-08] MEDS: ATORVASTATIN 10 MG TABLET PO SCH (21:35)
[2022-08-08] MEDS: INSULIN GLARGINE, 100 UNIT/ML CARTRIDGE SQ SCH (21:44)
[2022-08-08] MEDS: *INSULIN ASPART NOVOLOG 100 UNIT/ML CARTRIDGE SQ PRN (21:50)
[2022-08-08 22:25] VITALS: BP 132/66
--- NOTE | 2022-08-09 04:35 | NUR ---
CLOSING NOTES: ALERT TO SELF WILL HAVE EYE FOCUS WHEN NURSE IN THE ROOM VERBALLY WILL SAY LA LA LA WHEN WAVED AT AND NURSE SAYS "HI" HEELS ELEATED ON A PILLOW (FLOSTING THE HEELS) HEELS WITH FOAM FOR PROTECTION ASP AT ALL TIMED WHEN GIVEN PILLS WILL CRUSH PILSS AND GIVE WITH APPLESAUCE SLOWLY AND THE HOB UP 45 DEGREES LEFT ARM ELEVATED ON A PILLOW THRU THE NIGHT LESS SWELLING SEEN IN THE GILMA AND FINGERS THE LEFT ARM IS WARM TO TOUCH
[2022-08-09] MEDS: BLOOD SUGAR DIAGNOSTIC 1 EACH STRIP IN SCH ×4 (05:53→21:17)
[2022-08-09] MEDS: IV D5W 1,000 ML IV SCH ×3 (06:00→17:04)
[2022-08-09] MEDS: INSULIN ASPART/LISPRO 100 UNIT/ML CARTRIDGE SQ PRN (06:25)
[2022-08-09 06:57] LABS: BASOPHILS % (AUTO) 0.1 % (0.0-2.0); EOSINOPHILS % (AUTO) 3.4 % (0.0-6.0); HEMATOCRIT 32 % (39-51); HEMOGLOBIN 10.7 g/dL (13.5-17.5); LYMPHOCYTES # (AUTO) 1.6 K/uL (0.8-4.8); LYMPHOCYTES % (AUTO) 13.4 % (20.0-44.0); MEAN CORPUSCULAR HGB CONC 33 g/dl (31.0-36.0); MEAN CORPUSCULAR VOLUME 88 fL (80-96); MONOCYTES # (AUTO) 0.8 K/uL (0.1-1.30); MONOCYTES % (AUTO) 6.9 % (2.0-12.0); NEUTROPHILS # (AUTO) 8.9 K/uL (1.8-8.9); NEUTROPHILS % (AUTO) 76.2 % (43.0-81.0); PLATELET COUNT (AUTO) 242 K/uL (150-450); RED BLOOD CELL COUNT(AUTO) 3.67 MIL/uL (4.5-6.0); WHITE BLOOD COUNT (AUTO) 11.8 K/uL (4.3-11.0)
[2022-08-09 07:16] LABS: CALCIUM, SERUM 7.8 mg/dL (8.5-10.1); CARBON DIOXIDE 23 mmol/L (21-32); CHLORIDE 114 mmol/L (98-107); CREATININE 2.6 mg/dL (0.6-1.3); GLUCOSE 286 mg/dL (74-106); POTASSIUM 3.5 mmol/L (3.5-5.1); SODIUM SERUM 146 mmol/L (136-145); UREA NITROGEN, BLOOD 46 mg/dL (7-18)
--- NOTE | 2022-08-09 07:45 | NUR ---
MS RN OPENING NOTES PATIENT IN BED AWAKE AND VERBALLY RESPONSIVE . A/O X1 SINHALA SPEAKING , IV ACCESS OF MIDLINE ON RIGHT UPPPER ARM #18 WITH D5 WATER OF 100CC /HR . MAINTAINED ON MODERATE TO HIGH BACK REST. WITH F/C TO URINE BAG WITH LANDY COLORED URINE , NO SOB OR DISTRESS NOTED . SAFETY PRECAUTIONS MAINTAINED: BED AT LOWEST POSITION, LOCKED POSITION, BED ALARM,ON. SIDE RAILS UP X3, TRAY TABLE AND CALL LIGHT WITHIN REACH. WILL CONTINUE TO MONITOR FOR ANY CHANGES .
[2022-08-09] MEDS: PANTOPRAZOLE 40 MG TABLET.DR PO SCH (08:36)
[2022-08-09] MEDS: DOCUSATE SODIUM 100 MG CAPSULE PO SCH ×2 (08:50→17:30)
[2022-08-09] MEDS: TAMSULOSIN 0.4 MG CAP.SR.24H PO SCH (08:50)
[2022-08-09] MEDS: ASPIRIN EC 81 MG TABLET.DR PO SCH (08:50)
[2022-08-09] MEDS: DOCUSATE SODIUM 250 MG CAPSULE PO SCH ×2 (08:50→17:30)
[2022-08-09] MEDS: TICAGRELOR 90 MG TABLET PO SCH ×2 (08:51→17:31)
[2022-08-09] MEDS: POLYETHYLENE GLYCOL 3350 17 GM POWD.PACK PO SCH (08:52)
[2022-08-09] MEDS: METOPROLOL TARTRATE 25 MG TABLET PO SCH ×2 (08:52→17:30)
[2022-08-09] MEDS: APIXABAN 2.5 MG TABLET PO SCH ×2 (08:54→17:32)
[2022-08-09 08:58] VITALS: BP 148/66
[2022-08-09] MEDS: MEROPENEM 500 MG in IV NS 0.9% 50 ML IV SCH ×2 (08:59→21:04)
[2022-08-09] MEDS ORDERED: FLUCONAZOLE IN NS 100 MG in PREMIX 1 EA IV SCH ×2 (09:00)
[2022-08-09] MEDS: CLOTRIMAZOLE 1% 15 GM TUBE TP SCH ×2 (09:04→17:33)
[2022-08-09] MEDS: FLUCONAZOLE IN NS 200 MG in PREMIX 1 EA IV SCH ×2 (09:36)
[2022-08-09] MEDS: INSULIN LISPRO/ASPART 100 UNIT/ML CARTRIDGE SQ SCH ×2 (09:39→17:34)
[2022-08-09 16:51] VITALS: BP 109/56
[2022-08-09] MEDS: DEXTROSE 50%-WATER 50 ML DISP.SYRIN IV PRN (17:45)
--- NOTE | 2022-08-09 18:46 | NUR ---
MS RN CLOSING NOTES PATIENT IN BED AWAKE . A/O X1 MACEDONIAN SPEAKING , IV ACCESS OF MIDLINE ON RIGHT UPPPER ARM #18 WITH D5 WATER OF 100CC /HR . MAINTAINED ON MODERATE TO HIGH BACK REST. WITH F/C TO URINE BAG WITH LANDY COLORED URINE , NO SOB OR DISTRESS NOTED . NOTED WITH LOW BS OF 55 ON 1700 AND D50 WATER WAS GIVEN AND BLOOD SUGAR RECHECKED WITH RESULT OF 138 , ALL DUE MEDS GIVEN ORDERED , SEEN BY ST AND WITH RECOMMENDATIONS TO BE NPO DUE TO COUGHING WHEN FEEDING TIMES AND AT RISK FOR ASPIRATIONS , MAY HAVE MEDS CRUSHED WITH APPLE SAUCE AND TOLERATED WELL SAFETY PRECAUTIONS MAINTAINED: BED AT LOWEST POSITION, LOCKED POSITION, BED ALARM,ON. SIDE RAILS UP X3, TRAY TABLE AND CALL LIGHT WITHIN REACH. ENDORSED TO NEXT SHIFT .
[2022-08-09 20:00] VITALS: BP 121/64
[2022-08-09] MEDS: INSULIN GLARGINE, 100 UNIT/ML CARTRIDGE SQ SCH (21:45)
[2022-08-09] MEDS: ATORVASTATIN 10 MG TABLET PO SCH (21:46)
[2022-08-09] MEDS: DONEPEZIL 5 MG TABLET PO SCH (21:46)
[2022-08-09] MEDS: *INSULIN ASPART NOVOLOG 100 UNIT/ML CARTRIDGE SQ PRN (21:48)
--- NOTE | 2022-08-09 21:49 | NUR ---
HS BLOOD SUGAR 128 TEXT NOAL AND MADE HIM AWARE INSTRUCTED TO HOLD LANTUS THE SLIDING SCALE ALSO NO COVERAGE D/T BLOOD SUGAR 128
[2022-08-10] MEDS: IV D5W 1,000 ML IV SCH ×3 (03:39→22:00)
--- NOTE | 2022-08-10 05:29 | NUR ---
CLOSING NOTES: ALERT AND ORIENTATED X1 SPEAKS LATVIAN WHEN WAVED AT HE WILL WAVE BACK, HE WILL SPEAK OCC. WHEN I SAY HI HE WILL SAY HI NPO EXCEPT MEDS AND ASPIRATION PRECAUTIONS SUCTION SET UP AT THE BEDSIDE TSP OF APPLESAUCE WITH MED D/T HIS POOR SWALLOW REFLEW
[2022-08-10 05:47] LABS: BASOPHILS % (AUTO) 0.3 % (0.0-2.0); EOSINOPHILS % (AUTO) 3.2 % (0.0-6.0); HEMATOCRIT 34 % (39-51); HEMOGLOBIN 10.9 g/dL (13.5-17.5); LYMPHOCYTES # (AUTO) 1.3 K/uL (0.8-4.8); LYMPHOCYTES % (AUTO) 11.9 % (20.0-44.0); MEAN CORPUSCULAR HGB CONC 32 g/dl (31.0-36.0); MEAN CORPUSCULAR VOLUME 89 fL (80-96); MONOCYTES # (AUTO) 0.7 K/uL (0.1-1.30); MONOCYTES % (AUTO) 6.7 % (2.0-12.0); NEUTROPHILS # (AUTO) 8.6 K/uL (1.8-8.9); NEUTROPHILS % (AUTO) 77.9 % (43.0-81.0); PLATELET COUNT (AUTO) 236 K/uL (150-450); RED BLOOD CELL COUNT(AUTO) 3.77 MIL/uL (4.5-6.0); WHITE BLOOD COUNT (AUTO) 11.1 K/uL (4.3-11.0)
[2022-08-10] MEDS: BLOOD SUGAR DIAGNOSTIC 1 EACH STRIP IN SCH ×4 (05:54→22:45)
[2022-08-10] MEDS: INSULIN ASPART/LISPRO 100 UNIT/ML CARTRIDGE SQ PRN (06:00)
[2022-08-10 06:49] LABS: CALCIUM, SERUM 7.4 mg/dL (8.5-10.1); CARBON DIOXIDE 22 mmol/L (21-32); CHLORIDE 108 mmol/L (98-107); CREATININE 2.2 mg/dL (0.6-1.3); GLUCOSE 267 mg/dL (74-106); POTASSIUM 3.3 mmol/L (3.5-5.1); SODIUM SERUM 141 mmol/L (136-145); UREA NITROGEN, BLOOD 33 mg/dL (7-18)
[2022-08-10 07:00] VITALS: BP 114/63
--- NOTE | 2022-08-10 08:00 | NUR ---
RN OPENING NOTE PATIENT RECEIVED IN BED, AO X 2, KAZAKH SPEAKING, ABLE TO RESPONDS ALL STIMULI. IN NO ACUTE DISTRESS NOTED. RESPIRATORY EVEN AND UNLABORED ON ROOM AIR. SKIN IS WARM TO TOUCH, KEEP CLEAN/DRY. KEPT ELEVATED HOB FOR ENSURE AIRWAY AND ASPIRATION PRECAUTION, ALSO LOWEST POSITION OF THE BED, S/R UP X 3, BED ALARM IS ON AT ALL THE TIMES. ALL SAFETY PRECAUTION APPLIED. CALL LIGHT WITHIN REACH, WILL CONTINUE TO MONITOR.
[2022-08-10] MEDS: TAMSULOSIN 0.4 MG CAP.SR.24H PO SCH (09:50)
[2022-08-10] MEDS: PANTOPRAZOLE 40 MG TABLET.DR PO SCH (09:50)
[2022-08-10] MEDS: DOCUSATE SODIUM 100 MG CAPSULE PO SCH ×2 (09:52→17:16)
[2022-08-10] MEDS: DOCUSATE SODIUM 250 MG CAPSULE PO SCH (09:52)
[2022-08-10] MEDS: APIXABAN 2.5 MG TABLET PO SCH ×2 (09:52→17:17)
[2022-08-10] MEDS: ASPIRIN EC 81 MG TABLET.DR PO SCH (09:53)
[2022-08-10] MEDS: POTASSIUM CL. PREMIX PERIPHER. 50 ML IV SCH ×4 (09:53→12:26)
[2022-08-10] MEDS: POLYETHYLENE GLYCOL 3350 17 GM POWD.PACK PO SCH (09:53)
[2022-08-10] MEDS: FLUCONAZOLE IN NS 200 MG in PREMIX 1 EA IV SCH ×2 (09:53)
[2022-08-10] MEDS: METOPROLOL TARTRATE 25 MG TABLET PO SCH ×2 (09:53→17:16)
[2022-08-10] MEDS: MEROPENEM 500 MG in IV NS 0.9% 50 ML IV SCH ×2 (09:53→21:47)
[2022-08-10] MEDS: TICAGRELOR 90 MG TABLET PO SCH ×2 (09:54→17:21)
[2022-08-10] MEDS: CLOTRIMAZOLE 1% 15 GM TUBE TP SCH ×2 (09:55→17:22)
[2022-08-10] MEDS: INSULIN LISPRO/ASPART 100 UNIT/ML CARTRIDGE SQ SCH ×2 (10:00→17:31)
[2022-08-10 16:00] VITALS: BP 132/60
[2022-08-10] MEDS: DEXTROSE 50%-WATER 50 ML DISP.SYRIN IV PRN (17:16)
[2022-08-10] MEDS: GLUCERNA SHAKE 237 ML CAN PO SCH (17:17)
--- NOTE | 2022-08-10 17:36 | NUR ---
BS 62MG/DL, WILL HOLD INSULIN.
--- NOTE | 2022-08-10 18:29 | NUR ---
RN CLOSING NOTE PATIENT IN BED RESTING. IN NO ACUTE DISTRESS NOTED. RESPIRATORY EVEN AND UNLABORED ON ROOM AIR. SKIN IS WARM TO TOUCH, KEEP CLEAN/DRY, INTACT IV LINE. KEPT ELEVATED HOB FOR ENSURE AIRWAY AND ASPIRATION PRECAUTION. BED IN LOWEST POSITION AND LOCKED. BED ALARM IS ON AT ALL THE TIMES. ALL SAFETY MEASURED IN PLACED. CALL LIGHT WITHIN REACH, WILL ENDORSED TO NEXT SHIFT.
--- NOTE | 2022-08-10 19:00 | NUR ---
MS RN OPENING NOTES: RECEIVED PATIENT IN BED, AWAKE, NO S/S OF DISTRESS NOTED. NO COMPLAIN OF PAIN. CALL LIGHT WITHIN REACH. BED IN LOWEST AND LOCKED POSITION. BED ALARM ON. WITH CHAVEZ CATHETER INTACT, DRAINING YELLOWISH COLOR URINE.
[2022-08-10 20:00] VITALS: BP 133/71
[2022-08-10] MEDS: DONEPEZIL 5 MG TABLET PO SCH (21:46)
[2022-08-10] MEDS: ATORVASTATIN 10 MG TABLET PO SCH (21:46)
[2022-08-10] MEDS: *INSULIN ASPART NOVOLOG 100 UNIT/ML CARTRIDGE SQ PRN (22:42)
[2022-08-10] MEDS: INSULIN GLARGINE, 100 UNIT/ML CARTRIDGE SQ SCH (22:44)
[2022-08-11] MEDS: IV D5W 1,000 ML IV SCH (04:10)
[2022-08-11] MEDS: INSULIN ASPART/LISPRO 100 UNIT/ML CARTRIDGE SQ PRN (06:39)
[2022-08-11] MEDS: BLOOD SUGAR DIAGNOSTIC 1 EACH STRIP IN SCH ×2 (06:40→12:23)
[2022-08-11 07:00] VITALS: BP 145/75
[2022-08-11] MEDS: GLUCERNA SHAKE 237 ML CAN PO SCH ×2 (08:00→16:44)
[2022-08-11 08:03] LABS: BASOPHILS % (AUTO) 0.4 % (0.0-2.0); EOSINOPHILS % (AUTO) 2.6 % (0.0-6.0); HEMATOCRIT 35 % (39-51); HEMOGLOBIN 11.3 g/dL (13.5-17.5); LYMPHOCYTES # (AUTO) 1.5 K/uL (0.8-4.8); LYMPHOCYTES % (AUTO) 15.6 % (20.0-44.0); MEAN CORPUSCULAR HGB CONC 32 g/dl (31.0-36.0); MEAN CORPUSCULAR VOLUME 90 fL (80-96); MONOCYTES # (AUTO) 0.5 K/uL (0.1-1.30); MONOCYTES % (AUTO) 5.1 % (2.0-12.0); NEUTROPHILS # (AUTO) 7.5 K/uL (1.8-8.9); NEUTROPHILS % (AUTO) 76.3 % (43.0-81.0); PLATELET COUNT (AUTO) 282 K/uL (150-450); RED BLOOD CELL COUNT(AUTO) 3.91 MIL/uL (4.5-6.0); WHITE BLOOD COUNT (AUTO) 9.8 K/uL (4.3-11.0)
[2022-08-11 08:13] LABS: CALCIUM, SERUM 7.5 mg/dL (8.5-10.1); CARBON DIOXIDE 22 mmol/L (21-32); CHLORIDE 105 mmol/L (98-107); GLUCOSE 211 mg/dL (74-106); POTASSIUM 3.2 mmol/L (3.5-5.1); SODIUM SERUM 137 mmol/L (136-145); UREA NITROGEN, BLOOD 24 mg/dL (7-18)
[2022-08-11] MEDS: METOPROLOL TARTRATE 25 MG TABLET PO SCH ×2 (08:48→16:44)
[2022-08-11] MEDS: TAMSULOSIN 0.4 MG CAP.SR.24H PO SCH (08:48)
[2022-08-11] MEDS: ASPIRIN EC 81 MG TABLET.DR PO SCH (08:48)
[2022-08-11] MEDS: DOCUSATE SODIUM 100 MG CAPSULE PO SCH ×2 (08:48→16:39)
[2022-08-11] MEDS: POLYETHYLENE GLYCOL 3350 17 GM POWD.PACK PO SCH (08:48)
[2022-08-11] MEDS: APIXABAN 2.5 MG TABLET PO SCH ×2 (08:49→16:40)
[2022-08-11] MEDS: INSULIN LISPRO/ASPART 100 UNIT/ML CARTRIDGE SQ SCH (08:55)
[2022-08-11] MEDS: MEROPENEM 500 MG in IV NS 0.9% 50 ML IV SCH ×2 (08:57→21:52)
[2022-08-11] MEDS: IV D5/0.45 NACL 1,000 ML IV SCH ×2 (09:00→22:20)
[2022-08-11] MEDS: PANTOPRAZOLE 40 MG TABLET.DR PO SCH (09:02)
[2022-08-11] MEDS: CLOTRIMAZOLE 1% 15 GM TUBE TP SCH ×2 (09:04→16:45)
[2022-08-11] MEDS: TICAGRELOR 90 MG TABLET PO SCH ×2 (09:31→16:42)
[2022-08-11] MEDS: POTASSIUM CL. PREMIX PERIPHER. 50 ML IV SCH ×4 (09:31→13:02)
[2022-08-11] MEDS: FLUCONAZOLE IN NS 200 MG in PREMIX 1 EA IV SCH ×2 (09:45)
[2022-08-11 12:00] VITALS: BP 129/53
[2022-08-11] MEDS: DEXTROSE 50%-WATER 50 ML DISP.SYRIN IV PRN (12:04)
[2022-08-11] MEDS ORDERED: DEXTROSE 50%-WATER 50 ML DISP.SYRIN IV PRN (16:00)
[2022-08-11] MEDS ORDERED: *INSULIN ASPART NOVOLOG 100 UNIT/ML CARTRIDGE SQ PRN (16:00)
[2022-08-11] MEDS: BLOOD SUGAR DIAGNOSTIC 1 EACH STRIP VI SCH (16:49)
--- NOTE | 2022-08-11 18:04 | NUR ---
SHIFT SUMMARY PATIENT IS A/O X1-2, OPENS EYES SPONTANEOUSLY. IV ACCESS ON THA ML, D5 1/2NS RUNNING AT 75 ML/HR. CHAVEZ CATHETER IN PLACE, DRAINING TO GRAVITY. K+3.2, REPLACED WITH K Cl 40 mEqs IVPB. BLOOD GLUCOSE MONITORED, PT'S BS DROPS AT 47 THIS NOON. D10 IV GIVEN STAT (D50 CURRENTLY NOT AVAILABLE), INFORMED DR VALDEZ ABOUT PT'S INSULIN DOSAGE, HE ORDERED TO DISCONTINUE LISPRO 32u BID, LOWER LANTUS TO 20u, AND CHANGE ACHS SLIDING SCALE TO MODERATE. BS AFTER 30 MINS, 102. SAFETY MEASURES MAINTAINED. BED IN LOWEST POSITION, BRAKES LOCKED. SIDE RAILS UP X2. CALL LIGHT WITHIN REACH. WILL ENDORSE CONTINUITY OF CARE TO ONCOMING SHIFT. * BLOOD SUGAR THIS AFTERNOON IS 45. GAVE ANOTHER BAG OF D10. INFORMED DR. JOSÉ MIGUEL TUCKER AND HE ORDERED TO HOLD ALL INSULIN EXCEPT INSULIN SLIDING COVERAGE UNTIL TONIGHT. PER DR WALTERS, STILL KEEP THE PT ON MODERATE SS. CHECKED BS AFTER 30 MINS, 155.
--- NOTE | 2022-08-11 19:35 | NUR ---
MS RN OPENING NOTE RECEIVED PATIENT IN BED, AO X 2, KAZAKH SPEAKING, ABLE TO RESPONDS ALL STIMULI. IN NO ACUTE DISTRESS NOTED. RESPIRATORY EVEN AND UNLABORED ON ROOM AIR. HOB KEPT ELEVATED FOR AIRWAY AND ASPIRATION PRECAUTION. SAFETY PRECAUTIONS IN PLACE: BED LOCKED IN LOWEST POSITION, S/R UP X 3, BED ALARM IS ON AT ALL THE TIMES, CALL LIGHT WITHIN REACH. WILL CONTINUE TO MONITOR PT.
[2022-08-11 20:00] VITALS: BP 100/66
[2022-08-11] MEDS: DONEPEZIL 5 MG TABLET PO SCH (21:57)
[2022-08-11] MEDS: ATORVASTATIN 10 MG TABLET PO SCH (21:58)
[2022-08-11] MEDS ORDERED: INSULIN GLARGINE, 100 UNIT/ML CARTRIDGE SQ SCH (22:00)
[2022-08-12] MEDS: BLOOD SUGAR DIAGNOSTIC 1 EACH STRIP VI SCH ×3 (05:49→12:18)
[2022-08-12] MEDS: INSULIN ASPART/LISPRO 100 UNIT/ML CARTRIDGE SQ PRN ×2 (06:07→12:27)
[2022-08-12 06:16] LABS: BASOPHILS % (AUTO) 0.3 % (0.0-2.0); EOSINOPHILS % (AUTO) 2.8 % (0.0-6.0); HEMATOCRIT 32 % (39-51); HEMOGLOBIN 10.7 g/dL (13.5-17.5); LYMPHOCYTES % (AUTO) 11.3 % (20.0-44.0); MEAN CORPUSCULAR HGB CONC 33 g/dl (31.0-36.0); MEAN CORPUSCULAR VOLUME 87 fL (80-96); MONOCYTES # (AUTO) 0.3 K/uL (0.1-1.30); MONOCYTES % (AUTO) 3.7 % (2.0-12.0); NEUTROPHILS # (AUTO) 7.4 K/uL (1.8-8.9); NEUTROPHILS % (AUTO) 81.9 % (43.0-81.0); PLATELET COUNT (AUTO) 335 K/uL (150-450); RED BLOOD CELL COUNT(AUTO) 3.69 MIL/uL (4.5-6.0)
[2022-08-12 06:50] LABS: CALCIUM, SERUM 7.6 mg/dL (8.5-10.1); CARBON DIOXIDE 21 mmol/L (21-32); CHLORIDE 105 mmol/L (98-107); CREATININE 2.1 mg/dL (0.6-1.3); GLUCOSE 236 mg/dL (74-106); POTASSIUM 3.5 mmol/L (3.5-5.1); SODIUM SERUM 137 mmol/L (136-145); UREA NITROGEN, BLOOD 23 mg/dL (7-18)
--- NOTE | 2022-08-12 07:04 | NUR ---
MS RN OPENING NOTES RECEIVED PATIENT RESTING IN BED, A/O x2 LAO SPEAKING. ON ROOM AIR, NO S/S OF RESPIRATORY DISTRESS. IV ACCESS THA MIDLINE RUNNING D5 1/2 NS @75 ML/HR. INTACT AND PATENT. HAS CHAVEZ CATHETER, DRAINING YELLOW URINE. SKIN ISSUES: SACRAL DTI. DRESSING IN PLACE. SAFETY MEASURES IN PLACE: BED LOCKED AND IN LOWEST POSITION, SIDE RAILS UP x2, HOB ELEVATED, CALL LIGHT WITHIN REACH. WILL CONTINUE TO MONITOR.
--- NOTE | 2022-08-12 07:10 | NUR ---
MS RN CLOSING NOTE LEFT PATIENT IN BED, AO X 2, ARGENTINE SPEAKING, ABLE TO RESPONDS ALL STIMULI. IN NO ACUTE DISTRESS NOTED. RESPIRATORY EVEN AND UNLABORED ON ROOM AIR. HOB KEPT. PT FOUND WITH YEAST IN BLOOD CULTURE. LAB JUST CALLED WITH REPORT. ELEVATED FOR AIRWAY AND ASPIRATION PRECAUTION. SAFETY PRECAUTIONS IN PLACE: BED LOCKED IN LOWEST POSITION, S/R UP X 3, BED ALARM IS ON AT ALL THE TIMES, CALL LIGHT WITHIN REACH. WILL ENDORSE TO AM RN FOR BIJAN.
[2022-08-12 08:00] VITALS: BP 117/82
[2022-08-12] MEDS: MEROPENEM 500 MG in IV NS 0.9% 50 ML IV SCH (08:38)
[2022-08-12] MEDS: TICAGRELOR 90 MG TABLET PO SCH (08:39)
[2022-08-12] MEDS: GLUCERNA SHAKE 237 ML CAN PO SCH (08:39)
[2022-08-12] MEDS: PANTOPRAZOLE 40 MG TABLET.DR PO SCH (08:39)
[2022-08-12 08:40] VITALS: BP 117/82
[2022-08-12] MEDS: METOPROLOL TARTRATE 25 MG TABLET PO SCH (08:40)
[2022-08-12] MEDS: ASPIRIN EC 81 MG TABLET.DR PO SCH (08:40)
[2022-08-12] MEDS: POLYETHYLENE GLYCOL 3350 17 GM POWD.PACK PO SCH (08:40)
[2022-08-12] MEDS: DOCUSATE SODIUM 100 MG CAPSULE PO SCH (08:40)
[2022-08-12] MEDS: TAMSULOSIN 0.4 MG CAP.SR.24H PO SCH (08:40)
[2022-08-12] MEDS: CLOTRIMAZOLE 1% 15 GM TUBE TP SCH (08:41)
[2022-08-12] MEDS: APIXABAN 2.5 MG TABLET PO SCH (08:46)
[2022-08-12] MEDS ORDERED: FLUCONAZOLE (100 MG) 100 MG TABLET PO SCH ×2 (09:00)
[2022-08-12] MEDS ORDERED: APIX2.5T PO (09:04)
[2022-08-12] MEDS ORDERED: FLUC100T8 PO (09:04)
[2022-08-12] MEDS ORDERED: LINA5TAB PO (09:13)
[2022-08-12] MEDS: IV D5/0.45 NACL 1,000 ML IV SCH (12:17)
--- NOTE | 2022-08-12 13:05 | NUR ---
WOUND CARE FOLLOW UP: PT SEEN FOR RE-EVALUATION OF SACRAL DEEP TISSUE INJURY, NOW IN EVOLUTION. SCANT SEROUS DRAINAGE NOTED, NO SIGN OF INFECTION. TREATMENT ORDERS UPDATED AND DISCUSSED WITH NURSING STAFF. PER RN, PT GOING HOME WITH HOSPICE CARE. MD IN AGREEMENT WITH PLAN OF CARE.
--- NOTE | 2022-08-12 15:45 | NUR ---
AUTOMOTIVE GENERATOR REPAIRER NOTES PATIENT DISCHARGE HOME WITH HOSPICE CARE. SPOKE TO LEONIE ABOUT PATIENT. PATIENT A/Ox2 WELSH SPEAKING. STABLE ON ROOM AIR. NO S/S OF RESPIRATORY DISTRESS. ALL HEALTH TEACHINGS AND DISCHARGE INSTRUCTIONS GIVEN TO PATIENT. PATIENT UNABLE TO COMPREHEND DUE TO LANGUAGE BARRIER. IV ACCESS REMOVED, FC REMOVED. PRESSURE DRESSING APPLIED TO IV SITE. ALL FORMS SIGNED AND FILED INTO CHART. PATIENT LEFT UNIT @1455, ACCOMPANIED BY TWO neurology teacher. CHARGE NURSE AND MD AWARE OF DISCHARGE.
[2022-08-13] MEDS ORDERED: FLUC100T8 PO (08:38)
== END 2022-08-12 15:00 | disposition hospice, home (50) | DRG 867 ==
LOC: ER 19:44 → MED 08-01 02:13
PROVIDERS: ADMIT Registered Nurse; ATTEND Internal Medicine
PROC: 05H933Z Insertion of Infusion Device into Right Brachial Vein, Percutaneous Approach (ICD-10-PCS; principal; 2022-08-08)
DX: B49 Unspecified mycosis (principal); G93.41 Metabolic encephalopathy; N17.0 Acute kidney failure with tubular necrosis; B37.49 Other urogenital candidiasis; F02.84 Dementia in other diseases classified elsewhere, unspecified severity, with anxiety; E87.0 Hyperosmolality and hypernatremia; E87.20 Acidosis, unspecified; I82.622 Acute embolism and thrombosis of deep veins of left upper extremity; F05 Delirium due to known physiological condition; G93.40 Encephalopathy, unspecified; N13.6 Pyonephrosis; E11.65 Type 2 diabetes mellitus with hyperglycemia; K52.89 Other specified noninfective gastroenteritis and colitis; I11.0 Hypertensive heart disease with heart failure; I25.10 Atherosclerotic heart disease of native coronary artery without angina pectoris; I50.9 Heart failure, unspecified; Z20.822 Contact with and (suspected) exposure to COVID-19; I25.2 Old myocardial infarction; F41.9 Anxiety disorder, unspecified; Z79.4 Long term (current) use of insulin; Z79.84 Long term (current) use of oral hypoglycemic drugs; Z79.82 Long term (current) use of aspirin; Z79.899 Other long term (current) drug therapy; B96.89 Other specified bacterial agents as the cause of diseases classified elsewhere; G30.9 Alzheimer's disease, unspecified; K57.30 Diverticulosis of large intestine without perforation or abscess without bleeding; N28.1 Cyst of kidney, acquired; Z51.5 Encounter for palliative care; Z79.02 Long term (current) use of antithrombotics/antiplatelets; K76.89 Other specified diseases of liver; K56.41 Fecal impaction; E87.6 Hypokalemia
CPT/HCPCS: 36410; 36415; 70450-TC; 71045-TC; 74018; 76770-TC; 80048-TC; 80076-TC; 81001; 82010-TC; 82945-TC; 82962-TC; 83605-TC; 83735-TC; 84100-TC; 84443-TC; 84484-TC; 85025-TC; 87040-TC; 87081-TC; 87086-TC; 92526; 92611-TC; 93971-TC; A4216; C9803; G0378; J0744; J1450; J1644; J1815; J2185; J3480; J3490; J7030; J7040; J7050; J7060; J7070